=== PATIENT | female | born 1960 | race Two or more races ===

== ENCOUNTER 2019-11-01 21:33 | Inpatient (IN) | payer MEDICARE, OTHER ==
[2019-11-01] MEDS ORDERED: KETOROLAC 30 MG/ML 1 ML VIAL IVP STA (22:34)
[2019-11-01] MEDS ORDERED: ACETAMINOPHEN TAB 500 MG TAB PO STA (22:34)
[2019-11-01] MEDS ORDERED: SODIUM CHLORIDE 0.9% 1,000 ML IV ONE (22:35)
--- NOTE | 2019-11-01 22:44 | XR ---
EXAMINATION TYPE: XR chest 1V portable DATE OF EXAM: 11/01/2019 COMPARISON: NONE HISTORY: Fever and cough TECHNIQUE: FINDINGS: Heart and mediastinum are normal. There is some airspace consolidation in the right upper l obe. There is small area of atelectasis at the right lung base. Left lung is clear. There is no heart failure. There are no hilar masses. IMPRESSION: Right upper lobe consolidation more likely related to bronchopneumonia. Normal heart.
[2019-11-01] MEDS ORDERED: ALBUTEROL HFA INHALER INHALATION ONE (22:45)
[2019-11-01 22:52] LABS: Basophils % (A) 0 %; Eosinophils % (A) 0 %; HCT 37.2 % (34.0-46.0); HGB 12.6 gm/dL (11.4-16.0); Lymphocytes # (A) 1.2 k/uL (1.0-4.8); Lymphocytes % (A) 6 %; MCH 34.1 pg (25.0-35.0); MCHC 33.9 g/dL (31.0-37.0); MCV 100.7 fL (80.0-100.0); Mean Platelet Volume 8.4; Monocytes # (A) 1.3 k/uL (0-1.0); Monocytes % (A) 7 %; Neutrophils # (A) 16.7 k/uL (1.3-7.7); Neutrophils % (A) 85 %; Platelet Count 207 k/uL (150-450); RBC 3.69 m/uL (3.80-5.40); RDW 13.3 % (11.5-15.5); WBC 19.7 k/uL (3.8-10.6)
[2019-11-01 22:53] LABS: ALT 42 U/L (4-34); AST 80 U/L (14-36); African American GFR (CKD) >90 (>60 ml/min/1.73 sqM); Albumin 3.4 g/dL (3.5-5.0); Alkaline Phosphatase 102 U/L (38-126); Anion Gap 11 mmol/L; Blood Urea Nitrogen 13 mg/dL (7-17); Calcium 9.1 mg/dL (8.4-10.2); Carbon Dioxide 26 mmol/L (22-30); Chloride 99 mmol/L (98-107); Glucose 138 mg/dL (74-99); INR 0.9 (<1.2); Non-African American GFR(CKD) >90 (>60 ml/min/1.73 sqM); Partial Thromboplastin Time 26.4 sec (22.0-30.0); Potassium 3.6 mmol/L (3.5-5.1); Prothrombin Time 9.3 sec (9.0-12.0); Sodium 136 mmol/L (137-145); Total Bilirubin 0.6 mg/dL (0.2-1.3); Total Protein 6.2 g/dL (6.3-8.2)
[2019-11-01] MEDS ORDERED: AZITHROMYCIN 500 MG in SODIUM CHLORIDE 0.9% 250 ML IVPB STA (22:59)
--- NOTE | 2019-11-01 23:31 | ED ---
General Adult HPI - General Chief complaint: Fever Stated complaint: poss covid Time Seen by Provider: 11/01/19 22:09 Source: patient, EMS Mode of arrival: EMS Limitations: no limitations - History of Present Illness Initial comments: 59-year-old female patient passed medical history significant for oxygen dependent COPD presents to the emergency department today for evaluation of fever, cough, and shortness of breath. Patient states symptoms have been present for the last 2-3 days. States that she does feel tightness in her chest with this. Denies any sputum production. States that she has been feverish and chilled, temperature is been as high as 102F. She denies any nausea, vomiting, abdominal pain, hematuria, dysuria, urinary frequency, urinary urgency. States she has been having 1 episode of diarrhea daily for the last couple of days. Patient denies any recent rash, numbness, tingling, dizziness, weakness, hematuria, dysuria, urinary urgency, urinary frequency, headache, visual changes, or any other complaints. - Related Data Allergies Allergy/AdvReac Type Severity Reaction Status Date / Time Latex, Natural Rubber Allergy Rash/Hives Verified 11/01/19 22:23 Review of Systems ROS Statement: Those systems with pertinent positive or pertinent negative responses have been documented in the HPI. ROS Other: All systems not noted in ROS Statement are negative. Past Medical History Past Medical History: Hyperlipidemia Additional Past Medical History / Comment(s): back pain History of Any Multi-Drug Resistant Organisms: None Reported Past Surgical History: Tubal Ligation Past Psychological History: No Psychological Hx Reported Smoking Status: Current every day smoker Past Alcohol Use History: Occasional Past Drug Use History: None Reported General Exam Limitations: no limitations General appearance: alert, in no apparent distress ENT exam: Present: normal exam, normal oropharynx, mucous membranes moist Respiratory exam: Present: normal lung sounds bilaterally, wheezes (scattered inspiratory and expiratory wheezes noted. ). Absent: respiratory distress, rales, rhonchi, stridor Cardiovascular Exam: Present: regular rate, normal rhythm, normal heart sounds. Absent: systolic murmur, diastolic murmur, rubs, gallop, clicks GI/Abdominal exam: Present: soft, normal bowel sounds. Absent: distended, tenderness, guarding, rebound, rigid Neurological exam: Present: alert, oriented X3, CN II-XII intact Psychiatric exam: Present: normal affect, normal mood Skin exam: Present: warm, dry, intact, normal color. Absent: rash Course Vital Signs 11/01/19 22:00 Temperature 101.5 F H Pulse Rate 96 Respiratory 24 Rate Blood Pressure 110/71 O2 Sat by Pulse 97 Oximetry Medical Decision Making - Medical Decision Making 59-year-old female patient presented for evaluation of shortness of breath and fever. Physical examination revealed scattered expiratory wheezes in the posterior lung encarnacion. Patient is oxygen dependent, states that she has been using 3 L more often than usual. Labs reviewed and did reveal elevated white blood cell count at 19,000, mild elevation in liver enzymes. Chest x-ray showed right upper lobe pneumonia. We will start azithromycin and Rocephin. She'll be admitted to the hospital for further evaluation and monitoring. Coronavirus testing has been sent. - Lab Data Result diagrams: 11/01/19 22:00 11/01/19 22:00 Lab Results 11/01/19 11/01/19 11/01/19 Range/Units 22:00 22:00 22:00 WBC 19.7 H (3.8-10.6) k/uL RBC 3.69 L (3.80-5.40) m/uL Hgb 12.6 (11.4-16.0) gm/dL Hct 37.2 (34.0-46.0) % MCV 100.7 H (80.0-100.0) fL MCH 34.1 (25.0-35.0) pg MCHC 33.9 (31.0-37.0) g/dL RDW 13.3 (11.5-15.5) % Plt Count 207 (150-450) k/uL Neutrophils % 85 % Lymphocytes % 6 % Monocytes % 7 % Eosinophils % 0 % Basophils % 0 % Neutrophils # 16.7 H (1.3-7.7) k/uL Lymphocytes # 1.2 (1.0-4.8) k/uL Monocytes # 1.3 H (0-1.0) k/uL Eosinophils # 0.0 (0-0.7) k/uL Basophils # 0.0 (0-0.2) k/uL PT 9.3 (9.0-12.0) sec INR 0.9 (<1.2) APTT 26.4 (22.0-30.0) sec Sodium (137-145) mmol/L Potassium (3.5-5.1) mmol/L Chloride (98-107) mmol/L Carbon Dioxide (22-30) mmol/L Anion Gap mmol/L BUN (7-17) mg/dL Creatinine (0.52-1.04) mg/dL Est GFR (CKD-EPI)AfAm (>60 ml/min/1.73 sqM) Est GFR (CKD-EPI)NonAf (>60 ml/min/1.73 sqM) Glucose (74-99) mg/dL Plasma Lactic Acid Braulio (0.7-2.0) mmol/L Calcium (8.4-10.2) mg/dL Total Bilirubin (0.2-1.3) mg/dL AST (14-36) U/L ALT (4-34) U/L Alkaline Phosphatase (38-126) U/L Troponin I <0.012 (0.000-0.034) ng/mL Total Protein (6.3-8.2) g/dL Albumin (3.5-5.0) g/dL 11/01/19 11/01/19 Range/Units 22:00 22:00 WBC (3.8-10.6) k/uL RBC (3.80-5.40) m/uL Hgb (11.4-16.0) gm/dL Hct (34.0-46.0) % MCV (80.0-100.0) fL MCH (25.0-35.0) pg MCHC (31.0-37.0) g/dL RDW (11.5-15.5) % Plt Count (150-450) k/uL Neutrophils % % Lymphocytes % % Monocytes % % Eosinophils % % Basophils % % Neutrophils # (1.3-7.7) k/uL Lymphocytes # (1.0-4.8) k/uL Monocytes # (0-1.0) k/uL Eosinophils # (0-0.7) k/uL Basophils # (0-0.2) k/uL PT (9.0-12.0) sec INR (<1.2) APTT (22.0-30.0) sec Sodium 136 L (137-145) mmol/L Potassium 3.6 (3.5-5.1) mmol/L Chloride 99 (98-107) mmol/L Carbon Dioxide 26 (22-30) mmol/L Anion Gap 11 mmol/L BUN 13 (7-17) mg/dL Creatinine 0.59 (0.52-1.04) mg/dL Est GFR (CKD-EPI)AfAm >90 (>60 ml/min/1.73 sqM) Est GFR (CKD-EPI)NonAf >90 (>60 ml/min/1.73 sqM) Glucose 138 H (74-99) mg/dL Plasma Lactic Acid Braulio 1.2 (0.7-2.0) mmol/L Calcium 9.1 (8.4-10.2) mg/dL Total Bilirubin 0.6 (0.2-1.3) mg/dL AST 80 H (14-36) U/L ALT 42 H (4-34) U/L Alkaline Phosphatase 102 (38-126) U/L Troponin I (0.000-0.034) ng/mL Total Protein 6.2 L (6.3-8.2) g/dL Albumin 3.4 L (3.5-5.0) g/dL - Radiology Data Radiology results: report reviewed, image reviewed One view x-ray of the chest is obtained. Report was reviewed in its entirety. Impression by Dr. Prado shows right upper lobe consolidation more likely related to bronchopneumonia. Normal heart. Disposition Clinical Impression: Right upper lobe pneumonia Disposition: ADMITTED IP TO THIS [facility] Condition: Serious Referrals: Diego Saini MD [Primary Care Provider] - 1-2 days Decision to Admit Reason: Admit from EC Decision Date: 11/01/19 Decision Time: 23:34
[2019-11-01] MEDS ORDERED: PNEUMONIA PROTOCOL UTILIZED 1 EACH MISC PO PRN (23:36)
[2019-11-01] MEDS ORDERED: ALBUTEROL HFA INHALER INHALATION PRN (23:39)
[2019-11-02] MEDS: SODIUM CHLORIDE 0.9% 1,000 ML IV SCH ×3 (00:05→21:34)
[2019-11-02 06:01] LABS: Appearance,Urine Clear (Clear); Bacteria,Urine Rare /hpf; Bilirubin,Urine Negative (Negative); Blood,Urine Small (Negative); Color,Urine Yellow; Glucose,Urine (UA) Negative (Negative); Ketones,Urine Negative (Negative); Leukocyte Esterase,Urine Negative (Negative); Mucus,Urine Occasional /hpf; Nitrite,Urine Negative (Negative); Protein,Urine 1+ (Negative); RBC,Urine 3 /hpf (0-5); Specific Gravity,Urine 1.012 (1.001-1.035); Squamous Epithelial Cell,Urine 1 /hpf (0-4); WBC,Urine 2 /hpf (0-5)
[2019-11-02] MEDS: MORPHINE SULFATE 4 MG/ML SYRINGE IVP PRN ×3 (06:20→15:20)
--- NOTE | 2019-11-02 07:27 | XR ---
EXAMINATION TYPE: XR chest 1V portable DATE OF EXAM: 11/02/2019 HISTORY: pneumonia. REFERENCE: Previous study dated 11/01/2019. FINDINGS: There is worsening right upper lobe infiltrate. Lung volumes are prominent. Heart size uppe r limits of normal. Pleural spaces are clear. IMPRESSION: WORSENING RIGHT UPPER LOBE PNEUMONIA.
[2019-11-02] MEDS: ALBUTEROL HFA INHALER INHALATION SCH ×4 (08:26→20:25)
[2019-11-02] MEDS ORDERED: IPRATROPIUM-ALBUTEROL 3 ML NEB INHALATION PRN (08:39)
[2019-11-02] MEDS ORDERED: SUMAtriptan SUCCINATE 50 MG TAB PO PRN (08:39)
[2019-11-02] MEDS: buPROPion XL 300 MG TAB.ER.24H PO SCH (08:50)
[2019-11-02] MEDS: BACLOFEN 10 MG TAB PO SCH ×2 (08:50→20:14)
[2019-11-02] MEDS: ATORVASTATIN 20 MG TAB PO SCH (08:50)
[2019-11-02] MEDS: GABAPENTIN 300 MG CAP PO SCH ×3 (08:50→21:34)
[2019-11-02] MEDS: ACETAMINOPHEN TAB 325 MG TAB PO PRN ×2 (08:53→20:14)
[2019-11-02 10:32] VITALS: BMI 22.1
--- NOTE | 2019-11-02 19:05 | P.HPIM ---
History of Present Illness H&P Date: 11/02/19 Chief Complaint: Fever 59-year-old female patient passed medical history significant for oxygen dependent COPD presents to the emergency department today for evaluation of feve r, cough, and shortness of breath. Patient states symptoms have been present for the last 2-3 days. States that she does feel tightness in her chest with this. Denies any sputum production. States that she has been feverish and chilled, temperature is been as high as 102F. She denies any nausea, vomiting, abdominal pain, hematuria, dysuria, urinary frequency, urinary urgency. States she has been having 1 episode of diarrhea daily for the last couple of days. Patient denies any recent rash, numbness, tingling, dizziness, weakness, hematuria, dysuria, urinary urgency, urinary frequency, headache, visual changes, or any other complaints. Evaluation in ED revealed patient temperature to be at 101.5; elevated white blood count of 19,000 with mild elevation in liver enzymes; chest x-ray showed right upper lobe pneumonia; patient is started on IV Rocephin and azithromycin and is admitted to the hospital for further evaluation; patient is suspicious of covert 19 infection; testing is done and pending Review of Systems REVIEW OF SYSTEMS: CONSTITUTIONAL: Positive for fever, no malaise, no fatigue. HEENT: No recent visual problems or hearing problems. Denied any sore throat. CARDIOVASCULAR: No chest pain, orthopnea, PND, no palpitations, no syncope. PULMONARY: Complains of shortness of breath, no cough, no hemoptysis. GASTROINTESTINAL: No diarrhea, no nausea, no vomiting, no abdominal pain. NEUROLOGICAL: No headaches, no weakness, no numbness. HEMATOLOGICAL: Denies any bleeding or petechiae. GENITOURINARY: Denies any burning micturition, frequency, or urgency. MUSCULOSKELETAL/RHEUMATOLOGICAL: Denies any joint pain, swelling, or any muscle pain. ENDOCRINE: Denies any polyuria or polydipsia. The rest of the 14-point review of systems is negative. Past Medical History Past Medical History: Hyperlipidemia Additional Past Medical History / Comment(s): back pain History of Any Multi-Drug Resistant Organisms: None Reported Past Surgical History: Tubal Ligation Past Psychological History: No Psychological Hx Reported Smoking Status: Former smoker Past Alcohol Use History: Occasional Past Drug Use History: None Reported Medications and Allergies Home Medications Medication Instructions Recorded Confirmed Type Albuterol Inhaler [Ventolin Hfa 2 puff INHALATION RT-TID 11/02/19 11/02/19 History Inhaler] Atorvastatin [Lipitor] 20 mg PO DAILY 11/02/19 11/02/19 History Baclofen 10 mg PO BID 11/02/19 11/02/19 History Fluticasone/Umeclidin/Vilanter 1 puff INHALATION RT-DAILY 11/02/19 11/02/19 History [Trelegy Ellipta 100-62.5-25] Gabapentin 600 mg PO TID 11/02/19 11/02/19 History Hydrocortisone Cream 1 applic TOPICAL DAILY 11/02/19 11/02/19 History [Hydrocortisone 2.5% Cream] Ipratropium-Albuterol Nebulize 3 ml INHALATION TID PRN 11/02/19 11/02/19 History [Duoneb 0.5 mg-3 mg/3 ml Soln] Levothyroxine Sodium [Synthroid] 50 mcg PO DAILY 11/02/19 11/02/19 History Meloxicam 7.5 mg PO DAILY 11/02/19 11/02/19 History SUMAtriptan SUCCINATE [Sumatriptan 50 mg PO DAILY PRN 11/02/19 11/02/19 History Succinate] Sertraline [Zoloft] 100 mg PO HS 11/02/19 11/02/19 History Triamcinolone 0.025% Cream 1 applic TOPICAL DAILY 11/02/19 11/02/19 History [Kenalog 0.025% Cream] buPROPion HCL [Wellbutrin XL] 300 mg PO DAILY 11/02/19 11/02/19 History traZODone HCL 100 mg PO HS 11/02/19 11/02/19 History Allergies Allergy/AdvReac Type Severity Reaction Status Date / Time Latex, Natural Rubber Allergy Rash/Hives Verified 11/02/19 12:15 Physical Exam Vitals: Vital Signs Temp Pulse Pulse Resp BP BP Pulse Ox 11/02/19 07:00 100.1 F H 92 18 106/65 93 L 11/02/19 02:55 97.6 F 67 100/60 95 11/02/19 01:07 97.8 F 69 16 95/59 97 11/01/19 23:22 99.9 F H 92 18 103/62 98 11/01/19 22:00 101.5 F H 96 24 110/71 97 Intake and Output 11/02/19 11/02/19 11/02/19 06:59 14:59 22:59 Intake Total 120 Output Total 450 Balance -330 Intake: Oral 120 Output: Urine 450 Other: Voiding Method Toilet # Voids 2 Weight 56.699 kg 56.699 kg General appearance: alert, in no apparent distress ENT exam: Present: normal exam, normal oropharynx, mucous membranes moist Respiratory exam: Present: normal lung sounds bilaterally, wheezes (scattered inspiratory and expiratory wheezes noted. ). Absent: respiratory distress, rales, rhonchi, stridor Cardiovascular Exam: Present: regular rate, normal rhythm, normal heart sounds. Absent: systolic murmur, diastolic murmur, rubs, gallop, clicks GI/Abdominal exam: Present: soft, normal bowel sounds. Absent: distended, tenderness, guarding, rebound, rigid Neurological exam: Present: alert, oriented X3, CN II-XII intact Psychiatric exam: Present: normal affect, normal mood Skin exam: Present: warm, dry, intact, normal color. Absent: rash Results CBC & Chem 7: 11/01/19 22:00 11/01/19 22:00 Labs: Abnormal Lab Results - Last 24 Hours (Table) 11/01/19 11/01/19 11/02/19 Range/Units 22:00 22:00 05:05 WBC 19.7 H (3.8-10.6) k/uL RBC 3.69 L (3.80-5.40) m/uL MCV 100.7 H (80.0-100.0) fL Neutrophils # 16.7 H (1.3-7.7) k/uL Monocytes # 1.3 H (0-1.0) k/uL Sodium 136 L (137-145) mmol/L Glucose 138 H (74-99) mg/dL AST 80 H (14-36) U/L ALT 42 H (4-34) U/L Total Protein 6.2 L (6.3-8.2) g/dL Albumin 3.4 L (3.5-5.0) g/dL Urine Protein 1+ H (Negative) Urine Blood Small H (Negative) Urine Bacteria Rare H (None) /hpf Urine Mucus Occasional H (None) /hpf Thrombosis Risk Factor Assmnt - Choose All That Apply Any of the Below Risk Factors Present?: Yes Each Factor Represents 1 point: Abnormal pulmonary function (COPD), Age 41-60 years Other Risk Factors: No Other congenital or acquired thrombophilia - If yes, enter type in comment: No Thrombosis Risk Factor Assessment Total Risk Factor Score: 2 Thrombosis Risk Factor Assessment Level: Low Risk Assessment and Plan Assessment: 1. Right upper lobe pneumonia - We will continue patient on IV Rocephin and azithromycin; continue with O2 per nasal cannula keeping SpO2 greater than 92% - We will consult pulmonary service for further recommendations 2. Suspected COVID 19 infection; testing is sent and pending; we will treat symptomatically and keep patient in droplet and contact isolation 3. Mild transaminitis; possibly related to 1 and 2 - We will continue to monitor liver enzymes with possible abdominal ultrasound if liver enzymes continue to trend up 4. Hypothyroidism; levothyroxine 50 MCG daily 5. Hyperlipidemia; continue with home dose of Lipitor 20 mg by mouth daily at bedtime 6. Depression/sleep disorder; Zoloft 100 mg daily along with trazodone 100 mg daily at bedtime DVT prophylaxis; SCDs/subcu heparin CODE STATUS; full code
[2019-11-02] MEDS: traZODone HCL 100 MG TAB PO SCH (20:14)
[2019-11-02] MEDS: AZITHROMYCIN 500 MG TAB PO SCH (20:14)
[2019-11-02] MEDS: HEPARIN SODIUM,PORCINE 5,000 UNIT/ML 1 ML VIAL SQ SCH (20:14)
[2019-11-02] MEDS: SERTRALINE 100 MG TAB PO SCH (20:14)
[2019-11-03] MEDS: MORPHINE SULFATE 4 MG/ML SYRINGE IVP PRN ×4 (03:14→22:26)
[2019-11-03] MEDS: SODIUM CHLORIDE 0.9% 1,000 ML IV SCH ×6 (03:40→23:22)
[2019-11-03] MEDS: LEVOTHYROXINE 50 MCG TAB PO SCH (05:48)
[2019-11-03] MEDS: GABAPENTIN 300 MG CAP PO SCH ×3 (07:43→20:59)
[2019-11-03] MEDS: HEPARIN SODIUM,PORCINE 5,000 UNIT/ML 1 ML VIAL SQ SCH ×2 (07:43→20:59)
[2019-11-03] MEDS: ATORVASTATIN 20 MG TAB PO SCH (07:43)
[2019-11-03] MEDS: buPROPion XL 300 MG TAB.ER.24H PO SCH (07:43)
[2019-11-03] MEDS: BACLOFEN 10 MG TAB PO SCH ×2 (07:43→20:59)
[2019-11-03] MEDS: ALBUTEROL HFA INHALER INHALATION SCH ×4 (07:57→19:38)
[2019-11-03 08:21] LABS: Basophils % (A) 0 %; Eosinophils % (A) 0 %; HGB 10.6 gm/dL (11.4-16.0); Lymphocytes # (A) 1.1 k/uL (1.0-4.8); Lymphocytes % (A) 6 %; MCH 34.1 pg (25.0-35.0); MCHC 33.1 g/dL (31.0-37.0); MCV 103.2 fL (80.0-100.0); Macrocytosis Slight; Mean Platelet Volume 8.5; Monocytes % (A) 6 %; Neutrophils # (A) 15.2 k/uL (1.3-7.7); Neutrophils % (A) 86 %; Platelet Count 231 k/uL (150-450); RDW 13.8 % (11.5-15.5); WBC 17.7 k/uL (3.8-10.6)
[2019-11-03 08:25] LABS: African American GFR (CKD) >90 (>60 ml/min/1.73 sqM); Anion Gap 6 mmol/L; Blood Urea Nitrogen 8 mg/dL (7-17); Calcium 8.4 mg/dL (8.4-10.2); Carbon Dioxide 26 mmol/L (22-30); Chloride 104 mmol/L (98-107); Glucose 103 mg/dL (74-99); Non-African American GFR(CKD) >90 (>60 ml/min/1.73 sqM); Potassium 3.6 mmol/L (3.5-5.1); Sodium 136 mmol/L (137-145)
[2019-11-03 09:30] LABS: C Reactive Protein 378.7 mg/L (<10.0)
[2019-11-03] MEDS: methylPREDNISolone SOD SUCCI 125 MG/2 ML VIAL IV SCH ×3 (11:06→23:59)
[2019-11-03] MEDS: POLYETHYLENE GLYCOL 3350 17 GM POWD.PACK PO SCH (12:50)
--- NOTE | 2019-11-03 14:12 | P.CNPUL ---
History of Present Illness Consult date: 11/03/19 Requesting physician: Marlys Camargo Reason for consult: dyspnea, COPD Chief complaint: Shortness of breath, cough, congestion, fever History of present illness: This is a pleasant 59-year-old female patient who has a history of oxygen dependent chronic obstructive pulmonary disease, chronic tobacco dependence, hyperlipidemia. She presented here to the emergency room on 11/01/2019 with complaints of increasing shortness of breath cough, congestion and fever for 2-3 days prior to her arrival. Her temperature was as high as 102. She also had an episode of diarrhea. Chest x-ray shows significant right upper lobe pneumonia. She is seen today in consultation on the regular medical floor. She is currently awake and alert in no acute distress. She is maintaining O2 saturations in the low 90s on 4 L/m per nasal cannula. Afebrile this morning. She's had a T-max of 101.5 here. Blood and sputum cultures are pending. White count 17.7. Hemoglobin 10.6. Sodium 136. Potassium 3.6. Creatinine 0.49. Penaloza virus not detected. She's been initiated on azithromycin and ceftriaxone. She is on bronchodilators and IV Solu-Medrol. 0.9#875 ML's per hour. Heparin for DVT prophylaxis. Review of Systems REVIEW OF SYSTEMS: CONSTITUTIONAL: Denies any recent significant weight loss or weight gain. EYES: Denies change in vision. EARS, NOSE, MOUTH, THROAT: Denies headaches, denies sore throat. CARDIOVASCULAR: Denies chest pain, palpitations or syncopal episodes. RESPIRATORY: Positive for shortness of breath, cough, congestion no hemoptysis. GASTROINTESTINAL: Denies change in appetite, denies abdominal pain GENITOURINARY: Denies hematuria, denies infections. MUSKULOSKELETAL: Denies pain, denies swelling. INTEGUMENTARY: Denies rash, denies eczema. NEUROLOGICAL: Denies recent memory loss, no recent seizure activity. PSYCHIATRIC: Denies anxiety, denies depression. HEMATOLOGIC/LYMPHATIC: Denies anemia, denies enlarged lymph nodes. Past Medical History Past Medical History: COPD, Hyperlipidemia Additional Past Medical History / Comment(s): back pain History of Any Multi-Drug Resistant Organisms: None Reported Past Surgical History: Tubal Ligation Past Psychological History: No Psychological Hx Reported Smoking Status: Former smoker Past Alcohol Use History: Occasional Past Drug Use History: None Reported Medications and Allergies Home Medications Medication Instructions Recorded Confirmed Type Albuterol Inhaler [Ventolin Hfa 2 puff INHALATION RT-TID 11/02/19 11/02/19 History Inhaler] Atorvastatin [Lipitor] 20 mg PO DAILY 11/02/19 11/02/19 History Baclofen 10 mg PO BID 11/02/19 11/02/19 History Fluticasone/Umeclidin/Vilanter 1 puff INHALATION RT-DAILY 11/02/19 11/02/19 History [Trelegy Ellipta 100-62.5-25] Gabapentin 600 mg PO TID 11/02/19 11/02/19 History Hydrocortisone Cream 1 applic TOPICAL DAILY 11/02/19 11/02/19 History [Hydrocortisone 2.5% Cream] Ipratropium-Albuterol Nebulize 3 ml INHALATION TID PRN 11/02/19 11/02/19 History [Duoneb 0.5 mg-3 mg/3 ml Soln] Levothyroxine Sodium [Synthroid] 50 mcg PO DAILY 11/02/19 11/02/19 History Meloxicam 7.5 mg PO DAILY 11/02/19 11/02/19 History SUMAtriptan SUCCINATE [Sumatriptan 50 mg PO DAILY PRN 11/02/19 11/02/19 History Succinate] Sertraline [Zoloft] 100 mg PO HS 11/02/19 11/02/19 History Triamcinolone 0.025% Cream 1 applic TOPICAL DAILY 11/02/19 11/02/19 History [Kenalog 0.025% Cream] buPROPion HCL [Wellbutrin XL] 300 mg PO DAILY 11/02/19 11/02/19 History traZODone HCL 100 mg PO HS 11/02/19 11/02/19 History Allergies Allergy/AdvReac Type Severity Reaction Status Date / Time Latex, Natural Rubber Allergy Rash/Hives Verified 11/02/19 12:15 Physical Exam Vitals: Vital Signs Temp Pulse Resp BP Pulse Ox 11/03/19 07:00 98.9 F 93 18 98/63 92 L 11/03/19 01:55 98.8 F 114 H 144/68 93 L 11/02/19 19:12 100 F H 105 H 16 100/55 91 L 11/02/19 15:00 99.6 F 100 17 100/66 96 Intake and Output 11/02/19 11/03/19 11/03/19 22:59 06:59 14:59 Intake Total 750 Balance 750 Intake: Intake, IV Titration 750 Amount Sodium Chloride 0.9% 1, 750 000 ml @ 75 mls/hr IV . [id number] PORSHA Rx#:[id number] Other: Voiding Method Toilet Toilet # Voids 1 3 2 GENERAL EXAM: Alert, pleasant 59-year-old female patient, on 4 L nasal cannula, comfortable in no apparent distress. HEAD: Normocephalic. EYES: Normal reaction of pupils, equal size. NOSE: Clear with pink turbinates. THROAT: No erythema or exudates. NECK: No masses, no JVD. CHEST: No chest wall deformity. LUNGS: Equal air entry with few scattered rhonchi more so on the right lung, end expiratory wheeze, diminished. CVS: S1 and S2 normal with no audible murmur, regular rhythm. ABDOMEN: No hepatosplenomegaly, normal bowel sounds, no guarding or rigidity. SPINE: No scoliosis or deformity SKIN: No rashes CENTRAL NERVOUS SYSTEM: No focal deficits, tone is normal in all 4 extremities. EXTREMITIES: There is no peripheral edema. No clubbing, no cyanosis. Peripheral pulses are intact. Results - Laboratory Findings CBC and BMP: 11/03/19 07:30 11/03/19 07:30 PT/INR, D-dimer PT 9.3 sec (9.0-12.0) 11/01/19 22:00 INR 0.9 (<1.2) 11/01/19 22:00 Abnormal lab findings: Abnormal Labs 11/01/19 11/01/19 11/02/19 22:00 22:00 05:05 WBC 19.7 H RBC 3.69 L Hgb Hct MCV 100.7 H Neutrophils # 16.7 H Monocytes # 1.3 H Sodium 136 L Creatinine Glucose 138 H AST 80 H ALT 42 H C-Reactive Protein Total Protein 6.2 L Albumin 3.4 L Urine Protein 1+ H Urine Blood Small H Urine Bacteria Rare H Urine Mucus Occasional H 11/03/19 11/03/19 07:30 07:30 WBC 17.7 H RBC 3.10 L Hgb 10.6 L Hct 32.0 L MCV 103.2 H Neutrophils # 15.2 H Monocytes # Sodium 136 L Creatinine 0.49 L Glucose 103 H AST ALT C-Reactive Protein 378.7 H Total Protein Albumin Urine Protein Urine Blood Urine Bacteria Urine Mucus - Diagnostic Findings Chest x-ray: image reviewed (Right upper lobe consolidation) Assessment and Plan Assessment: 1 Acute hypoxic respiratory failure secondary to right upper lobe consolidation most likely community-acquired bronchopneumonia, Covid 19 screen negative 2 Leukocytosis secondary to above 3 Acute exacerbation of chronic obstructive pulmonary disease secondary to above 4 Chronic tobacco dependence 5 Hyperlipidemia 6 Hypothyroidism Plan The patient was seen and evaluated by Dr. Love Chest x-ray and labs review Continue ceftriaxone and azithromycin Add Symbicort continue DuoNeb's Continue IV Solu-Medrol Encouraged regarding the importance of complete smoking cessation Add NicoDerm patch Repeat chest x-ray in a.m. We will continue to follow make further recommendations based on her clinical status I, the cosigning physician, performed a history & physical examination of the patient. Lungs sounds few scattered rhonchi more so on the right, and expiratory wheeze, diminished Maintaining good O2 saturations in the 90s on 4 L/m per nasal cannula. I discussed the assessment and plan of care with my nurse practitioner, Carley Andrade. I attest to the above consultation as dictated by her. Time with Patient: Greater than 30
[2019-11-03] MEDS: ACETAMINOPHEN TAB 325 MG TAB PO PRN (15:40)
[2019-11-03] MEDS: SYMBICORT 160-4.5 MCG INHALER INHALATION SCH (19:38)
[2019-11-03] MEDS: traZODone HCL 100 MG TAB PO SCH (20:59)
[2019-11-03] MEDS: SERTRALINE 100 MG TAB PO SCH (20:59)
[2019-11-03] MEDS: AZITHROMYCIN 500 MG TAB PO SCH (20:59)
--- NOTE | 2019-11-04 00:06 | P.PN ---
Subjective Progress Note Date: 11/03/19 Principal diagnosis: RUL Pneumonia COPD exacerbation 59-year-old female patient passed medical history significant for oxygen dependent COPD presents to the emergency department today for evaluation of fever, cough, and shortness of breath. Patient states symptoms have been pre sent for the last 2-3 days. States that she does feel tightness in her chest with this. Denies any sputum production. States that she has been feverish and chilled, temperature is been as high as 102F. She denies any nausea, vomiting, abdominal pain, hematuria, dysuria, urinary frequency, urinary urgency. States she has been having 1 episode of diarrhea daily for the last couple of days. P atient denies any recent rash, numbness, tingling, dizziness, weakness, hematuria, dysuria, urinary urgency, urinary frequency, headache, visual changes, or any other complaints. Evaluation in ED revealed patient temperature to be at 101.5; elevated white blood count of 19,000 with mild elevation in liver enzymes; chest x-ray showed right upper lobe pneumonia; patient is started on IV Rocephin and azithromycin and is admitted to the hospital for further evaluation; patient is suspicious of covert 19 infection; testing is negatie. 11/03/2019 Patient currently denied any complaints of chest pain. Shortness of breath is about the same. Patient does have bilateral diffuse wheezing on exam. WBC is improving to 17.0 today. Currently being continued on antibiotics ceftriaxone and azithromycin. Pulmonary is following. Continue with oxygen therapy. No nausea vomiting or abdominal pain or diarrhea. Laboratory data showed WBC 17.7, hemoglobin 10.6, sodium 136, creatinine 0.49 CRP 378 and pro calcitonin 1.26. Both elevated. Current medications reviewed. Active Medications Acetaminophen (Tylenol Tab) 325 mg PO Q6HR PRN PRN Reason: Fever and/ or Pain Last Admin: 11/03/19 15:40 Dose: 325 mg Documented by: Albuterol Sulfate (Ventolin Hfa Inhaler) 2 puff INHALATION RT-QID PRN PRN Reason: Shortness Of Breath Or Wheezing Albuterol Sulfate (Ventolin Hfa Inhaler) 2 puff INHALATION RT-QID PORSHA Last Admin: 11/03/19 19:38 Dose: 2 puff Documented by: Atorvastatin Calcium (Lipitor) 20 mg PO DAILY [facility] Last Admin: 11/03/19 07:43 Dose: 20 mg Documented by: Azithromycin (Zithromax) 500 mg PO DAILY@2100 [facility] Last Admin: 11/03/19 20:59 Dose: 500 mg Documented by: Baclofen (Lioresal) 10 mg PO BID [facility] Last Admin: 11/03/19 20:59 Dose: 10 mg Documented by: Budesonide/Formoterol Fumarate (Symbicort 160-4.5 Mcg Inhaler) 2 puff INHALAT ION RT-BID [facility] Last Admin: 11/03/19 19:38 Dose: 2 puff Documented by: Bupropion HCl (Wellbutrin Xl) 300 mg PO DAILY [facility] Last Admin: 11/03/19 07:43 Dose: 300 mg Documented by: Gabapentin (Neurontin) 600 mg PO TID [facility] Last Admin: 11/03/19 20:59 Dose: 600 mg Documented by: Heparin Sodium (Porcine) (Heparin) 5,000 unit SQ Q12HR [facility] Last Admin: 11/03/19 20:59 Dose: 5,000 unit Documented by: Sodium Chloride (Saline 0.9%) 1,000 mls @ 75 mls/hr IV .[id number] [facility] Last Admin: 11/03/19 20:58 Dose: 75 mls/hr Documented by: Ceftriaxone Sodium 1 gm/ (Sodium Chloride) 50 mls @ 100 mls/hr IVPB Q24H [facility] Last Admin: 11/03/19 20:59 Dose: 100 mls/hr Documented by: Sodium Chloride (Saline 0.9%) 1,000 mls @ 75 mls/hr IV .[id number] [facility] Last Admin: 11/03/19 23:22 Dose: Not Given Documented by: Levothyroxine Sodium (Synthroid) 50 mcg PO 0630 [facility] Last Admin: 11/03/19 05:48 Dose: 50 mcg Documented by: Methylprednisolone Sodium Succinate (Solu-Medrol) 60 mg IV Q6HR [facility] Last Admin: 11/03/19 23:59 Dose: 60 mg Documented by: Miscellaneous Information (Pneumonia Protocol Utilized) 1 each PO ONCE PRN PRN Reason: Per Protocol Morphine Sulfate (Morphine Sulfate (Inj)) 4 mg IVP Q4HR PRN PRN Reason: Pain Last Admin: 11/03/19 22:26 Dose: 4 mg Documented by: Polyethylene Glycol (Miralax) 17 gm PO DAILY [facility] Last Admin: 11/03/19 12:50 Dose: 17 gm Documented by: Sertraline HCl (Zoloft) 100 mg PO [facility] Last Admin: 11/03/19 20:59 Dose: 100 mg Documented by: Sumatriptan Succinate (Imitrex) 50 mg PO WEEKLY PRN PRN Reason: MIGRAINES Trazodone HCl (Desyrel) 100 mg PO [facility] Last Admin: 11/03/19 20:59 Dose: 100 mg Documented by: Objective - Vital Signs Vital signs: Vital Signs Temp 100.2 F H 11/03/19 15:00 Pulse 105 H 11/03/19 15:00 Resp 17 11/03/19 15:00 BP 113/72 11/03/19 15:00 Pulse Ox 90 L 11/03/19 15:00 Intake & Output 11/03/19 11/03/19 11/04/19 06:59 18:59 06:59 Intake Total 750 Balance 750 Intake: Intake, IV Titration 750 Amount Sodium Chloride 0.9% 1, 750 000 ml @ 75 mls/hr IV . [id number] [facility] Rx#:[id number] Other: Voiding Method Toilet # Voids 3 2 - Exam General appearance: alert, in no apparent distress ENT exam: Present: normal exam, normal oropharynx, mucous membranes moist Respiratory exam: Present: normal lung sounds bilaterally, wheezes (scattered inspiratory and expiratory wheezes noted. ). Absent: respiratory distress, rales, rhonchi, stridor Cardiovascular Exam: Present: regular rate, normal rhythm, normal heart sounds. Absent: systolic murmur, diastolic murmur, rubs, gallop, clicks GI/Abdominal exam: Present: soft, normal bowel sounds. Absent: distended, tenderness, guarding, rebound, rigid Neurological exam: Present: alert, oriented X3, CN II-XII intact Psychiatric exam: Present: normal affect, normal mood Skin exam: Present: warm, dry, intact, normal color. Absent: rash - Labs CBC & Chem 7: 11/03/19 07:30 11/03/19 07:30 Labs: Abnormal Lab Results - Last 24 Hours (Table) 11/03/19 11/03/19 11/03/19 Range/Units 07:30 07:30 07:30 WBC 17.7 H (3.8-10.6) k/uL RBC 3.10 L (3.80-5.40) m/uL Hgb 10.6 L (11.4-16.0) gm/dL Hct 32.0 L (34.0-46.0) % MCV 103.2 H (80.0-100.0) fL Neutrophils # 15.2 H (1.3-7.7) k/uL Sodium 136 L (137-145) mmol/L Creatinine 0.49 L (0.52-1.04) mg/dL Glucose 103 H (74-99) mg/dL C-Reactive Protein 378.7 H (<10.0) mg/L Procalcitonin 1.26 H (0.02-0.09) ng/mL Microbiology - Last 24 Hours (Table) 11/02/19 20:30 Gram Stain - Preliminary Sputum Sputum Culture - Preliminary 11/01/19 22:00 Blood Culture - Preliminary Blood No Growth after 24 hours Assessment and Plan Assessment: 1. Right upper lobe pneumonia. Likely community-acquired pneumonia 2. Acute COPD exacerbation 3. Acute hypoxic respiratory failure secondary to above - continue patient on IV Rocephin and azithromycin; continue with O2 per nasal cannula keeping SpO2 greater than 92% - Pulmonary is following. 2. Suspected COVID 19 infection; test Negative 3. Mild transaminitis; possibly related to 1 and 2 - We will continue to monitor liver enzymes with possible abdominal ultrasound if liver enzymes continue to trend up 4. Hypothyroidism; levothyroxine 50 MCG daily 5. Hyperlipidemia; continue with home dose of Lipitor 20 mg by mouth daily at bedtime 6. Depression/sleep disorder; Zoloft 100 mg daily along with trazodone 100 mg daily at bedtime DVT prophylaxis; SCDs/subcu heparin CODE STATUS; full code Time with Patient: Greater than 30
[2019-11-04] MEDS: methylPREDNISolone SOD SUCCI 125 MG/2 ML VIAL IV SCH ×4 (05:58→23:19)
[2019-11-04] MEDS: LEVOTHYROXINE 50 MCG TAB PO SCH (05:59)
--- NOTE | 2019-11-04 07:20 | XR ---
EXAMINATION TYPE: XR chest 1V portable DATE OF EXAM: 11/04/2019 CLINICAL HISTORY: Right upper lobe pneumonia progress study. TECHNIQUE: Single AP portable upright view of the chest is obtained. COMPARISON: Chest x-ray from 2 and 3 days earlier. FINDINGS: Background chronic emphysematous change with persistent right upper lung opacity having mo re dense tiny low shaped consolidation along the upper aspect with surrounding opacity that has air b ronchograms. New small to tiny bilateral pleural effusions. Cardiac silhouette size upper limits of n ormal with atherosclerotic aorta. Osseous structures are intact. IMPRESSION: Persistent right upper lung acute infiltrate on background chronic emphysematous change. No significant change from most recent x-ray. There are new small to tiny bilateral pleural effusions noted.
[2019-11-04 07:28] LABS: Basophils % (A) 0 %; Eosinophils % (A) 0 %; HCT 34.4 % (34.0-46.0); HGB 10.9 gm/dL (11.4-16.0); Lymphocytes # (A) 0.7 k/uL (1.0-4.8); Lymphocytes % (A) 5 %; MCH 32.7 pg (25.0-35.0); MCHC 31.7 g/dL (31.0-37.0); MCV 103.1 fL (80.0-100.0); Macrocytosis Slight; Mean Platelet Volume 8.3; Monocytes # (A) 0.5 k/uL (0-1.0); Monocytes % (A) 3 %; Neutrophils # (A) 14.4 k/uL (1.3-7.7); Neutrophils % (A) 91 %; Platelet Count 295 k/uL (150-450); RBC 3.34 m/uL (3.80-5.40); RDW 13.6 % (11.5-15.5); WBC 15.7 k/uL (3.8-10.6)
[2019-11-04] MEDS: POLYETHYLENE GLYCOL 3350 17 GM POWD.PACK PO SCH (07:32)
[2019-11-04] MEDS: GABAPENTIN 300 MG CAP PO SCH ×3 (07:32→20:48)
[2019-11-04] MEDS: HEPARIN SODIUM,PORCINE 5,000 UNIT/ML 1 ML VIAL SQ SCH ×2 (07:32→20:46)
[2019-11-04] MEDS: BACLOFEN 10 MG TAB PO SCH ×2 (07:32→20:47)
[2019-11-04] MEDS: ATORVASTATIN 20 MG TAB PO SCH (07:32)
[2019-11-04] MEDS: buPROPion XL 300 MG TAB.ER.24H PO SCH (07:32)
[2019-11-04 07:58] LABS: African American GFR (CKD) >90 (>60 ml/min/1.73 sqM); Anion Gap 9 mmol/L; Blood Urea Nitrogen 13 mg/dL (7-17); Calcium 9.4 mg/dL (8.4-10.2); Carbon Dioxide 28 mmol/L (22-30); Chloride 108 mmol/L (98-107); Glucose 138 mg/dL (74-99); Non-African American GFR(CKD) >90 (>60 ml/min/1.73 sqM); Potassium 3.9 mmol/L (3.5-5.1); Sodium 145 mmol/L (137-145)
[2019-11-04] MEDS: SYMBICORT 160-4.5 MCG INHALER INHALATION SCH ×2 (08:12→20:00)
[2019-11-04] MEDS: ALBUTEROL HFA INHALER INHALATION SCH ×4 (08:12→20:00)
--- NOTE | 2019-11-04 09:37 | CDI ---
Date: 11/04/2019 08:49:37 AM From: Yara Saldivar RN CCDS Admit Date: 11/02/2019 11:51:00 AM Patient Name: Yue Craig Visit Number: [id number] Discharge Date: ATTENTION: The Clinical Documentation Specialists (CDI) and [facility] Coding Staff appreciate your assistance in clarifying documentation. Please respond to the clarification below the line at the bottom and electronically sign. The CDI & [facility] Coding staff will review the response and follow-up if needed. Please note: Queries are made part of the Legal Health Record. If you have any questions, please contact the author of this message via ITS. Dr. Maggie Adan The COVID-19 test obtained on 10/31 was reported as Negative on 10/31 Per Internal Medicine Progress Note 11/02 Suspected COVID 19 infection; test Negative 59-year-old female presents to the ED with fever, cough shortness of breath for 2-3 days. Medical History oxygen dependent COPD, chronic tobacco dependence and HLD Clinical Indicators Patient reported fever, cough and shortness of breath. 10/31 CXR: Right upper lobe consolidation. 11/01 CXR: Worsening right upper lobe infiltrate. 10/31 VS in ED Triage: T: 101.5, P: 96, R 24, Sat 97% on 3L nasal cannula 10/31 WBC: 19.7, Treatment: 11/02 Pulmonary consult: Acute Hypoxic respiratory failure secondary to right upper lobe consolidation most likely community-acquired bronchopneumonia, COVID 19 screen negative. 10/31 Azithromycin Ivpb x 1, 11/01 Azithromycin Po daily In order to capture the severity of condition, please clarify the COVID-19 status: False negative, treating for COVID-19 infection COVID-19 ruled out Other, please specify (Last Form Revision: August 2019) COVID-19 ruled out MTDD
[2019-11-04] MEDS: MORPHINE SULFATE 4 MG/ML SYRINGE IVP PRN ×3 (09:50→20:46)
[2019-11-04] MEDS ORDERED: MAGNESIUM HYDROXIDE 2,400 MG/10 ML CUP PO PRN (11:30)
[2019-11-04] MEDS: SODIUM CHLORIDE 0.9% 1,000 ML IV SCH ×3 (12:07→23:42)
--- NOTE | 2019-11-04 12:21 | P.PN ---
Subjective Progress Note Date: 11/04/19 Principal diagnosis: Acute hypoxic respiratory failure secondary to right upper lobe consolidation most likely community-acquired bronchopneumonia. CoVID 19 screen negative. This is a pleasant 59-year-old female patient who has a history of oxygen dependent chronic obstructive pulmonary disease, chronic tobacco dependence, hyperlipidemia. She presented here to the emergency room on 11/01/2019 with complaints of increasing shortness of breath cough, congestion and fever for 2-3 days prior to her arrival. Her temperature was as high as 102. She also had an episode of diarrhea. Chest x-ray shows significant right upper lobe pneumonia. She is seen today in consultation on the regular medical floor. She is currently awake and alert in no acute distress. She is maintaining O2 saturations in the low 90s on 4 L/m per nasal cannula. Afebrile this morning. She's had a T-max of 101.5 here. Blood and sputum cultures are pending. White count 17.7. Hemoglobin 10.6. Sodium 136. Potassium 3.6. Creatinine 0.49. Penaloza virus not detected. She's been initiated on azithromycin and ceftriaxone. She is on bronchodilators and IV Solu-Medrol. 0.9#875 ML's per hour. Heparin for DVT prophylaxis. The patient is seen today 11/04/2019 in follow-up on the regular medical floor. She is currently resting comfortably in bed. Awake and alert in no acute distress. Still with a loose productive cough. Still short of breath with exertion. Chest x-ray continues to show persistent right upper lobe acute infiltrate on the background of chronic emphysematous changes. No significant change from x-ray. New small tiny bilateral effusions noted. Blood culture reveals no growth to date. Sputum culture pending. White count 15.7. Hemoglobin 10.9. MCV 103. Sodium 145. Potassium 3.9. Creatinine 0.41. She is continued on bronchodilators, antibiotics in the form of ceftriaxone and azithromycin, IV Solu-Medrol. Objective - Vital Signs Vital signs: Vital Signs Temp 97.3 F L 11/04/19 07:00 Pulse 68 11/04/19 07:00 Resp 17 11/04/19 07:00 BP 110/69 11/04/19 07:00 Pulse Ox 93 L 11/04/19 07:00 Intake & Output 11/03/19 11/04/1911/03/20 18:59 06:59 18:59 Other: Voiding Method Toilet Toilet # Voids 2 1 - Exam GENERAL EXAM: Alert, pleasant 59-year-old female patient, on 4 L nasal cannula, comfortable in no apparent distress. HEAD: Normocephalic. EYES: Normal reaction of pupils, equal size. NOSE: Clear with pink turbinates. THROAT: No erythema or exudates. NECK: No masses, no JVD. CHEST: No chest wall deformity. LUNGS: Equal air entry with few scattered rhonchi more so on the right lung, end expiratory wheeze, diminished. CVS: S1 and S2 normal with no audible murmur, regular rhythm. ABDOMEN: No hepatosplenomegaly, normal bowel sounds, no guarding or rigidity. SPINE: No scoliosis or deformity SKIN: No rashes CENTRAL NERVOUS SYSTEM: No focal deficits, tone is normal in all 4 extremities. EXTREMITIES: There is no peripheral edema. No clubbing, no cyanosis. Peripheral pulses are intact. - Labs CBC & Chem 7: 11/04/19 06:47 11/04/19 06:47 Labs: Abnormal Lab Results - Last 24 Hours (Table) 11/03/19 11/04/19 11/04/19 Range/Units 07:30 06:47 06:47 WBC 15.7 H (3.8-10.6) k/uL RBC 3.34 L (3.80-5.40) m/uL Hgb 10.9 L (11.4-16.0) gm/dL MCV 103.1 H (80.0-100.0) fL Neutrophils # 14.4 H (1.3-7.7) k/uL Lymphocytes # 0.7 L (1.0-4.8) k/uL Chloride 108 H (98-107) mmol/L Creatinine 0.41 L (0.52-1.04) mg/dL Glucose 138 H (74-99) mg/dL Procalcitonin 1.26 H (0.02-0.09) ng/mL Microbiology - Last 24 Hours (Table) 11/01/19 22:00 Blood Culture - Preliminary Blood No Growth after 48 hours 11/02/19 20:30 Gram Stain - Preliminary Sputum Sputum Culture - Preliminary Assessment and Plan Assessment: 1 Acute hypoxic respiratory failure secondary to right upper lobe consolidation most likely community-acquired bronchopneumonia, Covid 19 screen negative 2 Leukocytosis secondary to above 3 Acute exacerbation of chronic obstructive pulmonary disease secondary to above 4 Chronic tobacco dependence 5 Hyperlipidemia 6 Hypothyroidism Plan The patient was seen and evaluated by Dr. Love Chest x-ray reviewed. Stable right upper lobe pneumonia Continue ceftriaxone and azithromycin Continue Symbicort continue DuoNeb's Continue IV Solu-Medrol Encouraged regarding the importance of complete smoking cessation Continue NicoDerm patch Repeat chest x-ray in a.m. We will continue to follow make further recommendations based on her clinical status I, the cosigning physician, performed a history & physical examination of the patient. Lungs sounds few scattered rhonchi more so on the right, and expiratory wheeze, diminished Maintaining good O2 saturations in the 90s on 4 L/m per nasal cannula. I discussed the assessment and plan of care with my nurse practition er, Carley Andrade. I attest to the above consultation as dictated by her.
[2019-11-04] MEDS: traZODone HCL 100 MG TAB PO SCH (20:47)
[2019-11-04] MEDS: DOCUSATE 100 MG CAP PO SCH (20:48)
[2019-11-04] MEDS: SERTRALINE 100 MG TAB PO SCH (20:48)
[2019-11-04] MEDS: AZITHROMYCIN 500 MG TAB PO SCH (20:48)
[2019-11-05] MEDS: methylPREDNISolone SOD SUCCI 125 MG/2 ML VIAL IV SCH (05:05)
[2019-11-05] MEDS: LEVOTHYROXINE 50 MCG TAB PO SCH (05:05)
[2019-11-05 06:30] LABS: Basophils % (A) 0 %; Eosinophils % (A) 0 %; HCT 34.5 % (34.0-46.0); HGB 11.2 gm/dL (11.4-16.0); Lymphocytes # (A) 0.9 k/uL (1.0-4.8); Lymphocytes % (A) 4 %; MCH 33.7 pg (25.0-35.0); MCHC 32.4 g/dL (31.0-37.0); MCV 103.8 fL (80.0-100.0); Macrocytosis Slight; Mean Platelet Volume 8.6; Monocytes # (A) 0.6 k/uL (0-1.0); Monocytes % (A) 3 %; Neutrophils # (A) 20.7 k/uL (1.3-7.7); Neutrophils % (A) 92 %; Platelet Count 396 k/uL (150-450); RBC 3.32 m/uL (3.80-5.40); RDW 14.1 % (11.5-15.5); WBC 22.5 k/uL (3.8-10.6)
[2019-11-05 07:05] LABS: African American GFR (CKD) >90 (>60 ml/min/1.73 sqM); Anion Gap 7 mmol/L; Blood Urea Nitrogen 16 mg/dL (7-17); Calcium 9.2 mg/dL (8.4-10.2); Carbon Dioxide 30 mmol/L (22-30); Chloride 107 mmol/L (98-107); Glucose 144 mg/dL (74-99); Non-African American GFR(CKD) >90 (>60 ml/min/1.73 sqM); Potassium 4.2 mmol/L (3.5-5.1); Sodium 144 mmol/L (137-145)
--- NOTE | 2019-11-05 07:25 | XR ---
EXAMINATION TYPE: XR chest 1V portable DATE OF EXAM: 11/05/2019 COMPARISON: 11/04/2019 HISTORY: Follow-up for pneumonia TECHNIQUE: Single frontal view of the chest is obtained. FINDINGS: More dense triangular-shaped right upper lobe apical airspace disease may represent postob structive atelectasis as there is elevation of the right minor fissure. There is increasing confluenc e of the more inferior consolidation near the interlobar fissure. Cardiomediastinal silhouette is enlarged. Some flattening of the diaphragm suggests underlying COPD. Very trace pleural effusions blunt the costophrenic angles. No acute osseous pathology. IMPRESSION: 1. Right apical consolidation may represent postobstructive atelectasis from endobronchial plugging a nd/or neoplasm. Bronchopneumonia is an alternative consideration. 2. Increasing confluence of the more inferior right upper lung opacity along the right minor fissure supporting multifocal pneumonia. 3. Trace pleural effusions and background emphysematous change.
[2019-11-05] MEDS: ALBUTEROL HFA INHALER INHALATION SCH ×4 (07:34→19:48)
[2019-11-05] MEDS: SYMBICORT 160-4.5 MCG INHALER INHALATION SCH ×2 (07:35→19:48)
[2019-11-05] MEDS: SODIUM CHLORIDE 0.9% 1,000 ML IV SCH ×3 (07:59→20:53)
[2019-11-05] MEDS: ATORVASTATIN 20 MG TAB PO SCH (07:59)
[2019-11-05] MEDS: HEPARIN SODIUM,PORCINE 5,000 UNIT/ML 1 ML VIAL SQ SCH ×2 (07:59→20:52)
[2019-11-05] MEDS: DOCUSATE 100 MG CAP PO SCH ×2 (07:59→20:53)
[2019-11-05] MEDS: POLYETHYLENE GLYCOL 3350 17 GM POWD.PACK PO SCH (07:59)
[2019-11-05] MEDS: GABAPENTIN 300 MG CAP PO SCH ×3 (07:59→20:53)
[2019-11-05] MEDS: BACLOFEN 10 MG TAB PO SCH ×2 (07:59→20:53)
[2019-11-05] MEDS: buPROPion XL 300 MG TAB.ER.24H PO SCH (07:59)
[2019-11-05] MEDS: MORPHINE SULFATE 4 MG/ML SYRINGE IVP PRN ×3 (08:03→20:52)
[2019-11-05] MEDS ORDERED: BISACODYL 10 MG SUPP RECTAL STA (12:39)
--- NOTE | 2019-11-05 13:23 | P.PN ---
Subjective Progress Note Date: 11/05/19 Principal diagnosis: Acute hypoxic respiratory failure secondary to right upper lobe consolidation related to community acquired bronchopneumonia This is a pleasant 59-year-old female patient who has a history of oxygen dependent chronic obstructive pulmonary disease, chronic tobacco dependence, hyperlipidemia. She presented here to the emergency room on 11/01/2019 with complaints of increasing shortness of breath cough, congestion and fever for 2-3 days prior to her arrival. Her temperature was as high as 102. She also had an episode of diarrhea. Chest x-ray shows significant right upper lobe pneumonia. She is seen today in consultation on the regular medical floor. She is currently awake and alert in no acute distress. She is maintaining O2 saturations in the low 90s on 4 L/m per nasal cannula. Afebrile this morning. She's had a T-max of 101.5 here. Blood and sputum cultures are pending. White count 17.7. Hemoglobin 10.6. Sodium 136. Potassium 3.6. Creatinine 0.49. Penaloza virus not detected. She's been initiated on azithromycin and ceftriaxone. She is on bronchodilators and IV Solu-Medrol. 0.9#875 ML's per hour. Heparin for DVT prophylaxis. The patient is seen today 11/04/2019 in follow-up on the regular medical floor. She is currently resting comfortably in bed. Awake and alert in no acute distress. Still with a loose productive cough. Still short of breath with exertion. Chest x-ray continues to show persistent right upper lobe acute infiltrate on the background of chronic emphysematous changes. No significant change from x-ray. New small tiny bilateral effusions noted. Blood culture reveals no growth to date. Sputum culture pending. White count 15.7. Hemoglobin 10.9. MCV 103. Sodium 145. Potassium 3.9. Creatinine 0.41. She is continued on bronchodilators, antibiotics in the form of ceftriaxone and azithromycin, IV Solu-Medrol. On 11/05/2019 patient seen in follow-up on general medical floor, she is calm and comfortable, in no acute distress, she remains on supplemental oxygen, currently down to 2 L, her pulse ox is 90-91%, no worsening dyspnea, breathing is comfortable, no hemoptysis, does get short of breath with exertion, tolerates activity well, no fever or chills, blood culture showed no growth, sputum culture showed presumptive staph aureus, and patient's currently on combination of Zithromax and Rocephin, awaiting final culture, on today's labs white blood cell count has trended up to 22.5, patient is on IV steroids at 60 mg every 6 hours, she has been afebrile, hemoglobin today is 11.2, electrolytes are within normal limits, BUN is 16 creatinine 0.4. Follow-up chest x-ray today shows right apical consolidation with postobstructive atelectasis from endobronchial plugging, bronchopneumonia is being considered for neoplasm. Possibly slightly improved chest x-ray. Trace pleural effusions. No acute events overnight Objective - Vital Signs Vital signs: Vital Signs Temp 97.7 F 11/05/19 07:00 Pulse 70 11/05/19 07:00 Resp 16 11/05/19 07:00 BP 136/76 11/05/19 07:00 Pulse Ox 90 L 11/05/19 11:47 Intake & Output 11/04/19 11/05/19 11/05/19 18:59 06:59 18:59 Other: Voiding Method Toilet # Voids 2 - Exam GENERAL EXAM: Alert, very pleasant, 59-year-old white female, on 2 L of oxygen and the pulse ox of 90-91% comfortable in no apparent distress. HEAD: Normocephalic/atraumatic. EYES: Normal reaction of pupils, equal size. Conjunctiva pink, sclera white. NOSE: Clear with pink turbinates. THROAT: No erythema or exudates. NECK: No masses, no JVD, no thyroid enlargement, no adenopathy. CHEST: No chest wall deformity. Symmetrical expansion. LUNGS: Equal air entry with no crackles, wheeze, rhonchi or dullness. CVS: Regular rate and rhythm, normal S1 and S2, no gallops, no murmurs, no rubs ABDOMEN: Soft, nontender. No hepatosplenomegaly, normal bowel sounds, no guarding or rigidity. EXTREMITIES: No clubbing, no edema, no cyanosis, 2+ pulses and upper and lower extremities. MUSCULOSKELETAL: Muscle strength and tone normal. SPINE: No scoliosis or deformity SKIN: No rashes CENTRAL NERVOUS SYSTEM: Alert and oriented -3. No focal deficits, tone is normal in all 4 extremities. PSYCHIATRIC: Alert and oriented -3. Appropriate affect. Intact judgment and insight. - Labs CBC & Chem 7: 11/05/19 05:35 11/05/19 05:35 Labs: Abnormal Lab Results - Last 24 Hours (Table) 11/05/19 11/05/19 Range/Units 05:35 05:35 WBC 22.5 H (3.8-10.6) k/uL RBC 3.32 L (3.80-5.40) m/uL Hgb 11.2 L (11.4-16.0) gm/dL MCV 103.8 H (80.0-100.0) fL Neutrophils # 20.7 H (1.3-7.7) k/uL Lymphocytes # 0.9 L (1.0-4.8) k/uL Creatinine 0.44 L (0.52-1.04) mg/dL Glucose 144 H (74-99) mg/dL Microbiology - Last 24 Hours (Table) 11/02/19 20:30 Gram Stain - Preliminary Sputum Sputum Culture - Preliminary Presumptive Staph aureus 11/01/19 22:00 Blood Culture - Preliminary Blood No Growth after 72 hours Assessment and Plan Plan: Assessment: #1. Acute hypoxic rest or a failure secondary to right upper lobe consolidation most likely related to community-acquired bronchopneumonia, quit 19 screen was negative #2. Leukocytosis secondary to the above, slightly worsened on today's labs on 11/05/2019, patient is afebrile, patient is also receiving IV steroids #3. Acute exacerbation of chronic obstructive pulmonary disease secondary to the above #4. Chronic tobacco dependence #5. Hyperlipidemia #6. Hypothyroidism #7. Advanced COPD, oxygen dependent #8. Depression Plan: Continue current medical treatment, continue current antibiotics, will follow the sputum cultures, will obtain a follow-up pro-calcitonin, we'll decrease the IV Solu-Medrol to 40 mg every 8 hours, continue breathing treatments, Symbicort. We'll continue to follow I performed a history & physical examination of the patient and discussed their management with my nurse practitioner, Antonia Chow. I reviewed the nurse practitioner's note and agree with the documented findings and plan of care. Lung sounds are positive for diminished breath sounds. The findings and the impression was discussed with the patient. I attest to the documentation by the nurse practitioner. Time with Patient: Less than 30
[2019-11-05] MEDS: methylPREDNISolone SOD SUCCI 40 MG/ML 1 ML VIAL IV SCH ×2 (15:46→23:36)
[2019-11-05] MEDS: AZITHROMYCIN 500 MG TAB PO SCH (20:53)
[2019-11-05] MEDS: traZODone HCL 100 MG TAB PO SCH (20:53)
[2019-11-05] MEDS: SERTRALINE 100 MG TAB PO SCH (20:53)
--- NOTE | 2019-11-06 00:56 | P.PN ---
Subjective Progress Note Date: 11/04/19 Principal diagnosis: RUL Pneumonia COPD exacerbation 59-year-old female patient passed medical history significant for oxygen dependent COPD presents to the emergency department today for evaluation of fever, cough, and shortness of breath. Patient states symptoms have been pre sent for the last 2-3 days. States that she does feel tightness in her chest with this. Denies any sputum production. States that she has been feverish and chilled, temperature is been as high as 102F. She denies any nausea, vomiting, abdominal pain, hematuria, dysuria, urinary frequency, urinary urgency. States she has been having 1 episode of diarrhea daily for the last couple of days. P atient denies any recent rash, numbness, tingling, dizziness, weakness, hematuria, dysuria, urinary urgency, urinary frequency, headache, visual changes, or any other complaints. Evaluation in ED revealed patient temperature to be at 101.5; elevated white blood count of 19,000 with mild elevation in liver enzymes; chest x-ray showed right upper lobe pneumonia; patient is started on IV Rocephin and azithromycin and is admitted to the hospital for further evaluation; patient is suspicious of covert 19 infection; testing is negatie. 11/03/2019 Patient currently denied any complaints of chest pain. Shortness of breath is about the same. Patient does have bilateral diffuse wheezing on exam. WBC is improving to 17.0 today. Currently being continued on antibiotics ceftriaxone and azithromycin. Pulmonary is following. Continue with oxygen therapy. No nausea vomiting or abdominal pain or diarrhea. Laboratory data showed WBC 17.7, hemoglobin 10.6, sodium 136, creatinine 0.49 CRP 378 and pro calcitonin 1.26. Both elevated. 11/03 Patient is currently sitting on the side of the bed. No complaints of chest pain. Still having cough with minimal sputum production and shortness of breath with exertion. Chest x-ray continues to show persistent right upper lobe acute infiltrate on the background of chronic emphysematous changes. New small tiny bilateral pleural effusions noted. Blood cultures showed no growth so far. WBC count improved to 15.7 today. Hemoglobin 10.9, MCV 103 BUN 13 and creatinine 0.41 patient has been afebrile. Pulmonary is following. Patient is being continued on IV antibiotics and breathing treatments. Current medications reviewed. Active Medications Acetaminophen (Tylenol Tab) 325 mg PO Q6HR PRN PRN Reason: Fever and/ or Pain Last Admin: 11/03/19 15:40 Dose: 325 mg Documented by: Albuterol Sulfate (Ventolin Hfa Inhaler) 2 puff INHALATION RT-QID PRN PRN Reason: Shortness Of Breath Or Wheezing Albuterol Sulfate (Ventolin Hfa Inhaler) 2 puff INHALATION RT-QID [facility] Last Admin: 11/03/19 19:38 Dose: 2 puff Documented by: Atorvastatin Calcium (Lipitor) 20 mg PO DAILY [facility] Last Admin: 11/03/19 07:43 Dose: 20 mg Documented by: Azithromycin (Zithromax) 500 mg PO DAILY@2100 [facility] Last Admin: 11/03/19 20:59 Dose: 500 mg Documented by: Baclofen (Lioresal) 10 mg PO BID [facility] Last Admin: 11/03/19 20:59 Dose: 10 mg Documented by: Budesonide/Formoterol Fumarate (Symbicort 160-4.5 Mcg Inhaler) 2 puff INHALATION RT-BID [facility] Last Admin: 11/03/19 19:38 Dose: 2 puff Documented by: Bupropion HCl (Wellbutrin Xl) 300 mg PO DAILY [facility] Last Admin: 11/03/19 07:43 Dose: 300 mg Documented by: Gabapentin (Neurontin) 600 mg PO TID [facility] Last Admin: 11/03/19 20:59 Dose: 600 mg Documented by: Heparin Sodium (Porcine) (Heparin) 5,000 unit SQ Q12HR [facility] Last Admin: 11/03/19 20:59 Dose: 5,000 unit Documented by: Sodium Chloride (Saline 0.9%) 1,000 mls @ 75 mls/hr IV .[id number] [facility] Last Admin: 11/03/19 20:58 Dose: 75 mls/hr Documented by: Ceftriaxone Sodium 1 gm/ (Sodium Chloride) 50 mls @ 100 mls/hr IVPB Q24H [facility] Last Admin: 11/03/19 20:59 Dose: 100 mls/hr Documented by: Sodium Chloride (Saline 0.9%) 1,000 mls @ 75 mls/hr IV .[id number] [facility] Last Admin: 11/03/19 23:22 Dose: Not Given Documented by: Levothyroxine Sodium (Synthroid) 50 mcg PO 0630 [facility] Last Admin: 11/03/19 05:48 Dose: 50 mcg Documented by: Methylprednisolone Sodium Succinate (Solu-Medrol) 60 mg IV Q6HR [facility] Last Admin: 11/03/19 23:59 Dose: 60 mg Documented by: Miscellaneous Information (Pneumonia Protocol Utilized) 1 each PO ONCE PRN PRN Reason: Per Protocol Morphine Sulfate (Morphine Sulfate (Inj)) 4 mg IVP Q4HR PRN PRN Reason: Pain Last Admin: 11/03/19 22:26 Dose: 4 mg Documented by: Polyethylene Glycol (Miralax) 17 gm PO DAILY [facility] Last Admin: 11/03/19 12:50 Dose: 17 gm Documented by: Sertraline HCl (Zoloft) 100 mg PO [facility] Last Admin: 11/03/19 20:59 Dose: 100 mg Documented by: Sumatriptan Succinate (Imitrex) 50 mg PO WEEKLY PRN PRN Reason: MIGRAINES Trazodone HCl (Desyrel) 100 mg PO [facility] Last Admin: 11/03/19 20:59 Dose: 100 mg Documented by: Objective - Vital Signs Vital signs: Vital Signs Temp 97.8 F 11/04/19 19:09 Pulse 67 11/04/19 19:09 Resp 20 11/04/19 19:09 BP 107/60 11/04/19 19:09 Pulse Ox 89 L 11/04/19 19:09 Intake & Output 11/04/19 11/04/19 11/05/19 06:59 18:59 06:59 Other: Voiding Method Toilet Toilet # Voids 1 2 - Exam General appearance: alert, in no apparent distress ENT exam: Present: normal exam, normal oropharynx, mucous membranes moist Respiratory exam: Present: normal lung sounds bilaterally, wheezes (scattered inspiratory and expiratory wheezes noted. ). Absent: respiratory distress, rales, rhonchi, stridor Cardiovascular Exam: Present: regular rate, normal rhythm, normal heart sounds. Absent: systolic murmur, diastolic murmur, rubs, gallop, clicks GI/Abdominal exam: Present: soft, normal bowel sounds. Absent: distended, tenderness, guarding, rebound, rigid Neurological exam: Present: alert, oriented X3, CN II-XII intact Psychiatric exam: Present: normal affect, normal mood Skin exam: Present: warm, dry, intact, normal color. Absent: rash - Labs CBC & Chem 7: 05/20/20 05:35 11/05/19 05:35 Labs: Abnormal Lab Results - Last 24 Hours (Table) 11/04/19 11/04/19 Range/Units 06:47 06:47 WBC 15.7 H (3.8-10.6) k/uL RBC 3.34 L (3.80-5.40) m/uL Hgb 10.9 L (11.4-16.0) gm/dL MCV 103.1 H (80.0-100.0) fL Neutrophils # 14.4 H (1.3-7.7) k/uL Lymphocytes # 0.7 L (1.0-4.8) k/uL Chloride 108 H (98-107) mmol/L Creatinine 0.41 L (0.52-1.04) mg/dL Glucose 138 H (74-99) mg/dL Microbiology - Last 24 Hours (Table) 11/01/19 22:00 Blood Culture - Preliminary Blood No Growth after 48 hours Assessment and Plan Assessment: 1. Right upper lobe pneumonia. Likely community-acquired pneumonia 2. Acute COPD exacerbation 3. Acute hypoxic respiratory failure secondary to above - continue patient on IV Rocephin and azithromycin; continue with O2 per nasal cannula keeping SpO2 greater than 92% - Pulmonary is following. 2. Suspected COVID 19 infection; test Negative 3. Mild transaminitis; possibly related to 1 and 2 - We will continue to monitor liver enzymes with possible abdominal ultrasound if liver enzymes continue to trend up 4. Hypothyroidism; levothyroxine 50 MCG daily 5. Hyperlipidemia; continue with home dose of Lipitor 20 mg by mouth daily at bedtime 6. Depression/sleep disorder; Zoloft 100 mg daily along with trazodone 100 mg daily at bedtime DVT prophylaxis; SCDs/subcu heparin CODE STATUS; full code Time with Patient: Greater than 30
[2019-11-06] MEDS ORDERED: FUROSEMIDE 10 MG/ML 2 ML VIAL IV ONE (00:59)
--- NOTE | 2019-11-06 00:59 | P.PN ---
Subjective Progress Note Date: 11/05/19 Principal diagnosis: RUL Pneumonia COPD exacerbation 59-year-old female patient passed medical history significant for oxygen dependent COPD presents to the emergency department today for evaluation of fever, cough, and shortness of breath. Patient states symptoms have been pre sent for the last 2-3 days. States that she does feel tightness in her chest with this. Denies any sputum production. States that she has been feverish and chilled, temperature is been as high as 102F. She denies any nausea, vomiting, abdominal pain, hematuria, dysuria, urinary frequency, urinary urgency. States she has been having 1 episode of diarrhea daily for the last couple of days. P atient denies any recent rash, numbness, tingling, dizziness, weakness, hematuria, dysuria, urinary urgency, urinary frequency, headache, visual changes, or any other complaints. Evaluation in ED revealed patient temperature to be at 101.5; elevated white blood count of 19,000 with mild elevation in liver enzymes; chest x-ray showed right upper lobe pneumonia; patient is started on IV Rocephin and azithromycin and is admitted to the hospital for further evaluation; patient is suspicious of covert 19 infection; testing is negatie. 11/03/2019 Patient currently denied any complaints of chest pain. Shortness of breath is about the same. Patient does have bilateral diffuse wheezing on exam. WBC is improving to 17.0 today. Currently being continued on antibiotics ceftriaxone and azithromycin. Pulmonary is following. Continue with oxygen therapy. No nausea vomiting or abdominal pain or diarrhea. Laboratory data showed WBC 17.7, hemoglobin 10.6, sodium 136, creatinine 0.49 CRP 378 and pro calcitonin 1.26. Both elevated. 11/03 Patient is currently sitting on the side of the bed. No complaints of chest pain. Still having cough with minimal sputum production and shortness of breath with exertion. Chest x-ray continues to show persistent right upper lobe acute infiltrate on the background of chronic emphysematous changes. New small tiny bilateral pleural effusions noted. Blood cultures showed no growth so far. WBC count improved to 15.7 today. Hemoglobin 10.9, MCV 103 BUN 13 and creatinine 0.41 patient has been afebrile. Pulmonary is following. Patient is being continued on IV antibiotics and breathing treatments. 11/05/19 Patient is still complaining of wet cough and shortness of breath. Able to walk to the bathroom but gets very tired and dyspneic. Currently on 2 L oxygen via nasal cannula. No fever no chills. Sputum cultures showed presumptive staph aureus. Currently patient is on antibiotics in the form of ceftriaxone and azithromycin. Laboratory test showed WBC count 22.5 today. Patient is on IV steroids as well. Continued on breathing treatments. Pulmonary is following. Current medications reviewed. Objective - Vital Signs Vital signs: Vital Signs Temp 98.3 F 11/05/19 20:07 Pulse 79 11/05/19 20:07 Resp 19 11/05/19 20:07 BP 121/72 11/05/19 20:07 Pulse Ox 91 L 11/05/19 20:07 Intake & Output 11/05/19 11/05/19 11/06/19 06:59 18:59 06:59 Weight 56.699 kg Other: Voiding Method Toilet Toilet # Voids 3 - Exam General appearance: alert, in no apparent distress ENT exam: Present: normal exam, normal oropharynx, mucous membranes moist Respiratory exam: Present: normal lung sounds bilaterally, wheezes (scattered inspiratory and expiratory wheezes noted. ). Absent: respiratory distress, rales, rhonchi, stridor Cardiovascular Exam: Present: regular rate, normal rhythm, normal heart sounds. Absent: systolic murmur, diastolic murmur, rubs, gallop, clicks GI/Abdominal exam: Present: soft, normal bowel sounds. Absent: distended, tenderness, guarding, rebound, rigid Neurological exam: Present: alert, oriented X3, CN II-XII intact Psychiatric exam: Present: normal affect, normal mood Skin exam: Present: warm, dry, intact, normal color. Absent: rash - Labs CBC & Chem 7: 11/05/19 05:35 11/05/19 05:35 Labs: Abnormal Lab Results - Last 24 Hours (Table) 11/05/19 11/05/19 Range/Units 05:35 05:35 WBC 22.5 H (3.8-10.6) k/uL RBC 3.32 L (3.80-5.40) m/uL Hgb 11.2 L (11.4-16.0) gm/dL MCV 103.8 H (80.0-100.0) fL Neutrophils # 20.7 H (1.3-7.7) k/uL Lymphocytes # 0.9 L (1.0-4.8) k/uL Creatinine 0.44 L (0.52-1.04) mg/dL Glucose 144 H (74-99) mg/dL Microbiology - Last 24 Hours (Table) 11/02/19 20:30 Gram Stain - Preliminary Sputum Sputum Culture - Preliminary Presumptive Staph aureus 11/01/19 22:00 Blood Culture - Preliminary Blood No Growth after 72 hours Assessment and Plan Assessment: 1. Right upper lobe pneumonia. Likely community-acquired pneumonia 2. Acute COPD exacerbation 3. Acute hypoxic respiratory failure secondary to above - continue patient on IV Rocephin and azithromycin; continue with O2 per nasal cannula keeping SpO2 greater than 92% - Pulmonary is following. 2. Suspected COVID 19 infection; test Negative 3. Mild transaminitis; possibly related to 1 and 2 - We will continue to monitor liver enzymes with possible abdominal ultrasound if liver enzymes continue to trend up 4. Hypothyroidism; levothyroxine 50 MCG daily 5. Hyperlipidemia; continue with home dose of Lipitor 20 mg by mouth daily at bedtime 6. Depression/sleep disorder; Zoloft 100 mg daily along with trazodone 100 mg daily at bedtime DVT prophylaxis; SCDs/subcu heparin CODE STATUS; full code Time with Patient: Greater than 30
[2019-11-06] MEDS: LEVOTHYROXINE 50 MCG TAB PO SCH (05:28)
[2019-11-06] MEDS: HEPARIN SODIUM,PORCINE 5,000 UNIT/ML 1 ML VIAL SQ SCH ×2 (07:43→20:39)
[2019-11-06] MEDS: buPROPion XL 300 MG TAB.ER.24H PO SCH (07:44)
[2019-11-06] MEDS: methylPREDNISolone SOD SUCCI 40 MG/ML 1 ML VIAL IV SCH ×3 (07:44→23:41)
[2019-11-06] MEDS: BACLOFEN 10 MG TAB PO SCH ×2 (07:44→20:39)
[2019-11-06] MEDS: DOCUSATE 100 MG CAP PO SCH ×2 (07:44→20:39)
[2019-11-06] MEDS: POLYETHYLENE GLYCOL 3350 17 GM POWD.PACK PO SCH (07:44)
[2019-11-06] MEDS: GABAPENTIN 300 MG CAP PO SCH ×3 (07:44→20:39)
[2019-11-06] MEDS: ATORVASTATIN 20 MG TAB PO SCH (07:44)
[2019-11-06] MEDS: ALBUTEROL HFA INHALER INHALATION SCH ×4 (07:52→19:50)
[2019-11-06] MEDS ORDERED: VANCOMYCIN IV PER PHARMACY 1 EACH MISC MISCELLANE PRN (07:52)
[2019-11-06] MEDS: SYMBICORT 160-4.5 MCG INHALER INHALATION SCH ×2 (07:52→19:50)
[2019-11-06] MEDS ORDERED: PIPERACILLIN-TAZOBACTAM 3.375 GM in SODIUM CHLORIDE 0.9% 100 ML IVPB SCH ×2 (08:00→10:00)
--- NOTE | 2019-11-06 08:16 | XR ---
EXAMINATION TYPE: XR chest 1V portable DATE OF EXAM: 11/06/2019 COMPARISON: 11/05/2019 INDICATION: Right lung pneumonia TECHNIQUE: Single frontal view of the chest is obtained. FINDINGS: The heart size is normal. The pulmonary vasculature is normal. There is a consolidation in the right upper lobe with some additional peripheral patchy infiltrates o n the right. Small right pleural and minimal left pleural effusions are present. IMPRESSION: 1. Small bilateral pleural effusions. 2. Right upper lobe consolidation appears stable. Continued follow-up to clearing is recommended.
[2019-11-06 08:20] LABS: Basophils # (A) 0.1 k/uL (0-0.2); Basophils % (A) 0 %; Eosinophils % (A) 0 %; HGB 11.9 gm/dL (11.4-16.0); Lymphocytes # (A) 1.3 k/uL (1.0-4.8); Lymphocytes % (A) 6 %; MCH 33.3 pg (25.0-35.0); MCHC 32.2 g/dL (31.0-37.0); MCV 103.4 fL (80.0-100.0); Macrocytosis Slight; Mean Platelet Volume 8.3; Monocytes % (A) 5 %; Neutrophils # (A) 20.3 k/uL (1.3-7.7); Neutrophils % (A) 89 %; Platelet Count 471 k/uL (150-450); RBC 3.58 m/uL (3.80-5.40); RDW 14.2 % (11.5-15.5); WBC 22.9 k/uL (3.8-10.6)
[2019-11-06 08:41] LABS: African American GFR (CKD) >90 (>60 ml/min/1.73 sqM); Anion Gap 5 mmol/L; Blood Urea Nitrogen 17 mg/dL (7-17); Calcium 9.1 mg/dL (8.4-10.2); Carbon Dioxide 35 mmol/L (22-30); Chloride 100 mmol/L (98-107); Glucose 104 mg/dL (74-99); Non-African American GFR(CKD) >90 (>60 ml/min/1.73 sqM); Sodium 140 mmol/L (137-145)
[2019-11-06] MEDS: VANCOMYCIN 1,000 MG in SODIUM CHLORIDE 0.9% 250 ML IVPB SCH ×3 (08:42→23:41)
[2019-11-06] MEDS: MORPHINE SULFATE 4 MG/ML SYRINGE IVP PRN (09:02)
[2019-11-06] MEDS: PIPERACILLIN-TAZOBACTAM 3.375 GM in SODIUM CHLORIDE 0.9% 100 ML IVPB SCH ×2 (11:02→17:42)
--- NOTE | 2019-11-06 12:17 | P.PN ---
Subjective Progress Note Date: 11/06/19 Principal diagnosis: Acute hypoxic respiratory failure secondary to right upper lobe consolidation related to community acquired bronchopneumonia This is a pleasant 59-year-old female patient who has a history of oxygen dependent chronic obstructive pulmonary disease, chronic tobacco dependence, hyperlipidemia. She presented here to the emergency room on 11/01/2019 with complaints of increasing shortness of breath cough, congestion and fever for 2-3 days prior to her arrival. Her temperature was as high as 102. She also had an episode of diarrhea. Chest x-ray shows significant right upper lobe pneumonia. She is seen today in consultation on the regular medical floor. She is currently awake and alert in no acute distress. She is maintaining O2 saturations in the low 90s on 4 L/m per nasal cannula. Afebrile this morning. She's had a T-max of 101.5 here. Blood and sputum cultures are pending. White count 17.7. Hemoglobin 10.6. Sodium 136. Potassium 3.6. Creatinine 0.49. Penaloza virus not detected. She's been initiated on azithromycin and ceftriaxone. She is on bronchodilators and IV Solu-Medrol. 0.9#875 ML's per hour. Heparin for DVT prophylaxis. The patient is seen today 11/04/2019 in follow-up on the regular medical floor. She is currently resting comfortably in bed. Awake and alert in no acute distress. Still with a loose productive cough. Still short of breath with exertion. Chest x-ray continues to show persistent right upper lobe acute infiltrate on the background of chronic emphysematous changes. No significant change from x-ray. New small tiny bilateral effusions noted. Blood culture reveals no growth to date. Sputum culture pending. White count 15.7. Hemoglobin 10.9. MCV 103. Sodium 145. Potassium 3.9. Creatinine 0.41. She is continued on bronchodilators, antibiotics in the form of ceftriaxone and azithromycin, IV Solu-Medrol. On 11/05/2019 patient seen in follow-up on general medical floor, she is calm and comfortable, in no acute distress, she remains on supplemental oxygen, currently down to 2 L, her pulse ox is 90-91%, no worsening dyspnea, breathing is comfortable, no hemoptysis, does get short of breath with exertion, tolerates activity well, no fever or chills, blood culture showed no growth, sputum culture showed presumptive staph aureus, and patient's currently on combination of Zithromax and Rocephin, awaiting final culture, on today's labs white blood cell count has trended up to 22.5, patient is on IV steroids at 60 mg every 6 hours, she has been afebrile, hemoglobin today is 11.2, electrolytes are within normal limits, BUN is 16 creatinine 0.4. Follow-up chest x-ray today shows right apical consolidation with postobstructive atelectasis from endobronchial plugging, bronchopneumonia is being considered for neoplasm. Possibly slightly improved chest x-ray. Trace pleural effusions. No acute events overnight On 11/06/2019 patient seen in follow-up on general medical floor, her sputum culture did come back positive for methicillin-resistant staph aureus and we switched her antibiotics to Zosyn and vancomycin. Remains on 3 L of oxygen with a pulse ox of 93%, she is afebrile, hemodynamically patient is stable, breathing is nonlabored. Today's chest x-ray has been reviewed showing small bilateral pleural effusions, and right upper lobe consolidation which appears to be stable in appearance. Afebrile in the last 72 hours. No altered mentation. Today's labs have been reviewed showing persistence of leukocytosis with white blood cell count 22.9, hemoglobin is 11.9, sodium is 140 potassium is 4.0, chloride is 100, CO2 35, BUN 17 creatinine 0.53 Objective - Vital Signs Vital signs: Vital Signs Temp 97.8 F 11/06/19 07:00 Pulse 64 11/06/19 07:00 Resp 17 11/06/19 07:00 BP 125/60 11/06/19 07:00 Pulse Ox 93 L 11/06/19 07:00 Intake & Output 11/05/19 11/06/19 11/06/19 18:59 06:59 18:59 Weight 56.699 kg Other: Voiding Method Toilet # Voids 3 - Exam GENERAL EXAM: Alert, very pleasant, 59-year-old white female, on 3 L of oxygen and the pulse ox of 93% comfortable in no apparent distress. HEAD: Normocephalic/atraumatic. EYES: Normal reaction of pupils, equal size. Conjunctiva pink, sclera white. NOSE: Clear with pink turbinates. THROAT: No erythema or exudates. NECK: No masses, no JVD, no thyroid enlargement, no adenopathy. CHEST: No chest wall deformity. Symmetrical expansion. LUNGS: Equal air entry with no crackles, wheeze, rhonchi or dullness. CVS: Regular rate and rhythm, normal S1 and S2, no gallops, no murmurs, no rubs ABDOMEN: Soft, nontender. No hepatosplenomegaly, normal bowel sounds, no guarding or rigidity. EXTREMITIES: No clubbing, no edema, no cyanosis, 2+ pulses and upper and lower extremities. MUSCULOSKELETAL: Muscle strength and tone normal. SPINE: No scoliosis or deformity SKIN: No rashes CENTRAL NERVOUS SYSTEM: Alert and oriented -3. No focal deficits, tone is normal in all 4 extremities. PSYCHIATRIC: Alert and oriented -3. Appropriate affect. Intact judgment and insight. - Labs CBC & Chem 7: 11/06/19 07:35 11/06/19 07:35 Labs: Abnormal Lab Results - Last 24 Hours (Table) 11/06/19 11/06/19 Range/Units 07:35 07:35 WBC 22.9 H (3.8-10.6) k/uL RBC 3.58 L (3.80-5.40) m/uL MCV 103.4 H (80.0-100.0) fL Plt Count 471 H (150-450) k/uL Neutrophils # 20.3 H (1.3-7.7) k/uL Carbon Dioxide 35 H (22-30) mmol/L Glucose 104 H (74-99) mg/dL Microbiology - Last 24 Hours (Table) 11/02/19 20:30 Gram Stain - Final Sputum Sputum Culture - Final Methicillin resist S. aureus 11/01/19 22:00 Blood Culture - Preliminary Blood No Growth after 96 hours Assessment and Plan Plan: Assessment: #1. Acute hypoxic rest or a failure secondary to methicillin-resistant staph aureus related pneumonia with chest x-ray showing right upper lobe consolidation, COVID 19 screen was negative #2. Leukocytosis secondary to the above, slightly worsened on today's labs on 11/05/2019, patient is afebrile, patient is also receiving IV steroids On 11/06/2019 patient's sputum culture resulted in MRSA, and patient's antibiotics have been switched from Rocephin and Zithromax to Zosyn and vancomycin #3. Acute exacerbation of chronic obstructive pulmonary disease secondary to t he above #4. Chronic tobacco dependence #5. Hyperlipidemia #6. Hypothyroidism #7. Advanced COPD, oxygen dependent #8. Depression Plan: We'll switch antibiotics from Rocephin and Zithromax to Zosyn and vancomycin, continue all other medical treatments, obtain follow-up blood work and chest x- ray tomorrow, patient is afebrile, no worsening dyspnea, leukocytosis remains elevated, we'll continue to follow. I performed a history & physical examination of the patient and discussed their management with my nurse practitioner, Atnonia Chow. I reviewed the nurse practitioner's note and agree with the documented findings and plan of care. Lung sounds are positive for diminished breath sounds. The findings and the impression was discussed with the patient. I attest to the documentation by the nurse practitioner. Time with Patient: Less than 30
[2019-11-06] MEDS: FUROSEMIDE 10 MG/ML 2 ML VIAL IV SCH (15:53)
[2019-11-06] MEDS: traZODone HCL 100 MG TAB PO SCH (20:39)
[2019-11-06] MEDS: SERTRALINE 100 MG TAB PO SCH (20:39)
--- NOTE | 2019-11-07 01:05 | P.PN ---
Subjective Progress Note Date: 11/06/19 Principal diagnosis: RUL Pneumonia COPD exacerbation 59-year-old female patient passed medical history significant for oxygen dependent COPD presents to the emergency department today for evaluation of fever, cough, and shortness of breath. Patient states symptoms have been pre sent for the last 2-3 days. States that she does feel tightness in her chest with this. Denies any sputum production. States that she has been feverish and chilled, temperature is been as high as 102F. She denies any nausea, vomiting, abdominal pain, hematuria, dysuria, urinary frequency, urinary urgency. States she has been having 1 episode of diarrhea daily for the last couple of days. P atient denies any recent rash, numbness, tingling, dizziness, weakness, hematuria, dysuria, urinary urgency, urinary frequency, headache, visual changes, or any other complaints. Evaluation in ED revealed patient temperature to be at 101.5; elevated white blood count of 19,000 with mild elevation in liver enzymes; chest x-ray showed right upper lobe pneumonia; patient is started on IV Rocephin and azithromycin and is admitted to the hospital for further evaluation; patient is suspicious of covert 19 infection; testing is negatie. 11/03/2019 Patient currently denied any complaints of chest pain. Shortness of breath is about the same. Patient does have bilateral diffuse wheezing on exam. WBC is improving to 17.0 today. Currently being continued on antibiotics ceftriaxone and azithromycin. Pulmonary is following. Continue with oxygen therapy. No nausea vomiting or abdominal pain or diarrhea. Laboratory data showed WBC 17.7, hemoglobin 10.6, sodium 136, creatinine 0.49 CRP 378 and pro calcitonin 1.26. Both elevated. 11/03 Patient is currently sitting on the side of the bed. No complaints of chest pain. Still having cough with minimal sputum production and shortness of breath with exertion. Chest x-ray continues to show persistent right upper lobe acute infiltrate on the background of chronic emphysematous changes. New small tiny bilateral pleural effusions noted. Blood cultures showed no growth so far. WBC count improved to 15.7 today. Hemoglobin 10.9, MCV 103 BUN 13 and creatinine 0.41 patient has been afebrile. Pulmonary is following. Patient is being continued on IV antibiotics and breathing treatments. 11/05/19 Patient is still complaining of wet cough and shortness of breath. Able to walk to the bathroom but gets very tired and dyspneic. Currently on 2 L oxygen via nasal cannula. No fever no chills. Sputum cultures showed presumptive staph aureus. Currently patient is on antibiotics in the form of ceftriaxone and azithromycin. Laboratory test showed WBC count 22.5 today. Patient is on IV steroids as well. Continued on breathing treatments. Pulmonary is following. 11/06/2019 Patient is currently sitting on the side of the bed, still having wet congested cough. Leukocytosis is worsening with WBC count 22.9. Repeat chest x-ray showed bibasilar lateral small effusions. Patient was given a dose of IV Lasix. Antibiotics were changed to vancomycin and Zosyn as per pulmonary recommendations. Patient has been afebrile. Still requiring oxygen at 2 L via nasal cannula. Blood pressure is fairly controlled. No nausea vomiting or abdominal pain or diarrhea. Current medications reviewed. Objective - Vital Signs Vital signs: Vital Signs Temp 98.1 F 11/06/19 19:16 Pulse 70 11/06/19 19:16 Resp 17 11/06/19 19:16 BP 103/49 11/06/19 19:16 Pulse Ox 92 L 11/06/19 19:16 Intake & Output 11/06/19 11/06/19 11/07/19 06:59 18:59 06:59 Other: Voiding Method Toilet Toilet # Voids 3 1 - Exam General appearance: alert, in no apparent distress ENT exam: Present: normal exam, normal oropharynx, mucous membranes moist Respiratory exam: Present: normal lung sounds bilaterally, basilar crackles (scattered inspiratory and expiratory wheezes noted. ). Absent: respiratory distress, rales, rhonchi, stridor Cardiovascular Exam: Present: regular rate, normal rhythm, normal heart sounds. Absent: systolic murmur, diastolic murmur, rubs, gallop, clicks GI/Abdominal exam: Present: soft, normal bowel sounds. Absent: distended, tenderness, guarding, rebound, rigid Neurological exam: Present: alert, oriented X3, CN II-XII intact Psychiatric exam: Present: normal affect, normal mood Skin exam: Present: warm, dry, intact, normal color. Absent: rash - Labs CBC & Chem 7: 11/06/19 07:35 11/06/19 07:35 Labs: Abnormal Lab Results - Last 24 Hours (Table) 11/06/19 11/06/19 11/06/19 Range/Units 07:35 07:35 07:35 WBC 22.9 H (3.8-10.6) k/uL RBC 3.58 L (3.80-5.40) m/uL MCV 103.4 H (80.0-100.0) fL Plt Count 471 H (150-450) k/uL Neutrophils # 20.3 H (1.3-7.7) k/uL Carbon Dioxide 35 H (22-30) mmol/L Glucose 104 H (74-99) mg/dL Procalcitonin 0.31 H (0.02-0.09) ng/mL Microbiology - Last 24 Hours (Table) 11/02/19 20:30 Gram Stain - Final Sputum Sputum Culture - Final Methicillin resist S. aureus 11/01/19 22:00 Blood Culture - Preliminary Blood No Growth after 96 hours Assessment and Plan Assessment: 1. Right upper lobe pneumonia. Likely community-acquired pneumonia 2. Acute COPD exacerbation 3. Acute hypoxic respiratory failure secondary to above - continue patient on IV Rocephin and azithromycin; continue with O2 per nasal cannula keeping SpO2 greater than 92% - Pulmonary is following. 2. Suspected COVID 19 infection; test Negative 3. Mild transaminitis; possibly related to 1 and 2 - We will continue to monitor liver enzymes with possible abdominal ultrasound if liver enzymes continue to trend up 4. Hypothyroidism; levothyroxine 50 MCG daily 5. Hyperlipidemia; continue with home dose of Lipitor 20 mg by mouth daily at bedtime 6. Depression/sleep disorder; Zoloft 100 mg daily along with trazodone 100 mg daily at bedtime DVT prophylaxis; SCDs/subcu heparin CODE STATUS; full code Time with Patient: Greater than 30
[2019-11-07] MEDS: PIPERACILLIN-TAZOBACTAM 3.375 GM in SODIUM CHLORIDE 0.9% 100 ML IVPB SCH ×3 (02:14→18:22)
[2019-11-07] MEDS: MORPHINE SULFATE 4 MG/ML SYRINGE IVP PRN ×3 (02:25→18:29)
[2019-11-07] MEDS: LEVOTHYROXINE 50 MCG TAB PO SCH (05:57)
[2019-11-07] MEDS: ALBUTEROL HFA INHALER INHALATION SCH ×4 (08:20→20:30)
[2019-11-07] MEDS: SYMBICORT 160-4.5 MCG INHALER INHALATION SCH ×2 (08:20→20:30)
[2019-11-07] MEDS: methylPREDNISolone SOD SUCCI 40 MG/ML 1 ML VIAL IV SCH ×2 (08:41→16:18)
[2019-11-07] MEDS: VANCOMYCIN 1,000 MG in SODIUM CHLORIDE 0.9% 250 ML IVPB SCH ×2 (08:42→16:18)
[2019-11-07] MEDS: HEPARIN SODIUM,PORCINE 5,000 UNIT/ML 1 ML VIAL SQ SCH ×2 (08:43→21:47)
[2019-11-07] MEDS: POLYETHYLENE GLYCOL 3350 17 GM POWD.PACK PO SCH (08:43)
[2019-11-07] MEDS: buPROPion XL 300 MG TAB.ER.24H PO SCH (08:44)
[2019-11-07] MEDS: GABAPENTIN 300 MG CAP PO SCH ×3 (08:44→21:47)
[2019-11-07] MEDS: BACLOFEN 10 MG TAB PO SCH ×2 (08:44→21:47)
[2019-11-07] MEDS: ATORVASTATIN 20 MG TAB PO SCH (08:44)
[2019-11-07] MEDS: DOCUSATE 100 MG CAP PO SCH ×2 (08:44→21:47)
[2019-11-07] MEDS: FUROSEMIDE 10 MG/ML 2 ML VIAL IV SCH (08:44)
[2019-11-07 10:27] LABS: Basophils # (A) 0.1 k/uL (0-0.2); Basophils % (A) 0 %; Eosinophils % (A) 0 %; HCT 38.1 % (34.0-46.0); HGB 11.8 gm/dL (11.4-16.0); Lymphocytes # (A) 1.5 k/uL (1.0-4.8); Lymphocytes % (A) 6 %; MCH 31.8 pg (25.0-35.0); MCV 102.6 fL (80.0-100.0); Macrocytosis Slight; Mean Platelet Volume 8.5; Monocytes # (A) 1.3 k/uL (0-1.0); Monocytes % (A) 6 %; Neutrophils # (A) 20.4 k/uL (1.3-7.7); Neutrophils % (A) 87 %; Platelet Count 486 k/uL (150-450); RBC 3.72 m/uL (3.80-5.40); RDW 13.8 % (11.5-15.5); WBC 23.5 k/uL (3.8-10.6)
[2019-11-07 10:41] LABS: African American GFR (CKD) >90 (>60 ml/min/1.73 sqM); Anion Gap 6 mmol/L; Blood Urea Nitrogen 16 mg/dL (7-17); Calcium 8.6 mg/dL (8.4-10.2); Carbon Dioxide 36 mmol/L (22-30); Chloride 96 mmol/L (98-107); Glucose 119 mg/dL (74-99); Non-African American GFR(CKD) >90 (>60 ml/min/1.73 sqM); Potassium 4.2 mmol/L (3.5-5.1); Sodium 138 mmol/L (137-145)
--- NOTE | 2019-11-07 12:36 | P.PN ---
Subjective Progress Note Date: 11/07/19 Principal diagnosis: Acute hypoxic respiratory failure secondary to right upper lobe consolidation most likely community-acquired bronchopneumonia. CoVID 19 screen negative. This is a pleasant 59-year-old female patient who has a history of oxygen dependent chronic obstructive pulmonary disease, chronic tobacco dependence, hyperlipidemia. She presented here to the emergency room on 11/01/2019 with complaints of increasing shortness of breath cough, congestion and fever for 2-3 days prior to her arrival. Her temperature was as high as 102. She also had an episode of diarrhea. Chest x-ray shows significant right upper lobe pneumonia. She is seen today in consultation on the regular medical floor. She is currently awake and alert in no acute distress. She is maintaining O2 saturations in the low 90s on 4 L/m per nasal cannula. Afebrile this morning. She's had a T-max of 101.5 here. Blood and sputum cultures are pending. White count 17.7. Hemoglobin 10.6. Sodium 136. Potassium 3.6. Creatinine 0.49. Penaloza virus not detected. She's been initiated on azithromycin and ceftriaxone. She is on bronchodilators and IV Solu-Medrol. 0.9#875 ML's per hour. Heparin for DVT prophylaxis. The patient is seen today 11/07/2019 follow-up on the regular medical floor. She is awake and alert in no acute distress. She is maintaining good O2 saturations in the 90s on 3 L/m per nasal cannula. She's been afebrile. Hemodynamically stable. Sputum cultures positive for MRSA. Culture reveals no growth. White count 23.5. Hemoglobin 11.8. Sodium 138. Potassium 4.2. Creatinine 0.60. She remains on vancomycin and Zosyn along with bronchodilators and IV Solu-Medrol. She also is on Lasix 20 mg IV daily. Objective - Vital Signs Vital signs: Vital Signs Temp 97.9 F 11/07/19 07:00 Pulse 64 11/07/19 07:00 Resp 17 11/07/19 07:00 BP 120/63 11/07/19 07:00 Pulse Ox 92 L 11/07/19 07:00 Intake & Output 11/06/19 11/07/19 11/07/19 18:59 06:59 18:59 Other: Voiding Method Toilet Toilet # Voids 3 1 - Exam GENERAL EXAM: Alert, pleasant 59-year-old female patient, on 3 L nasal cannula, comfortable in no apparent distress. HEAD: Normocephalic. EYES: Normal reaction of pupils, equal size. NOSE: Clear with pink turbinates. THROAT: No erythema or exudates. NECK: No masses, no JVD. CHEST: No chest wall deformity. LUNGS: Equal air entry with few scattered rhonchi more so on the right lung, end expiratory wheeze, diminished. CVS: S1 and S2 normal with no audible murmur, regular rhythm. ABDOMEN: No hepatosplenomegaly, normal bowel sounds, no guarding or rigidity. SPINE: No scoliosis or deformity SKIN: No rashes CENTRAL NERVOUS SYSTEM: No focal deficits, tone is normal in all 4 extremities. EXTREMITIES: There is no peripheral edema. No clubbing, no cyanosis. Peripheral pulses are intact. - Labs CBC & Chem 7: 11/07/19 08:40 11/07/19 08:40 Labs: Abnormal Lab Results - Last 24 Hours (Table) 11/06/19 11/07/19 11/07/19 Range/Units 07:35 08:40 08:40 WBC 23.5 H (3.8-10.6) k/uL RBC 3.72 L (3.80-5.40) m/uL MCV 102.6 H (80.0-100.0) fL Plt Count 486 H (150-450) k/uL Neutrophils # 20.4 H (1.3-7.7) k/uL Monocytes # 1.3 H (0-1.0) k/uL Chloride 96 L (98-107) mmol/L Carbon Dioxide 36 H (22-30) mmol/L Glucose 119 H (74-99) mg/dL Procalcitonin 0.31 H (0.02-0.09) ng/mL Microbiology - Last 24 Hours (Table) 11/01/19 22:00 Blood Culture - Preliminary Blood No Growth after 120 hours 11/02/19 20:30 Gram Stain - Final Sputum Sputum Culture - Final Methicillin resist S. aureus Assessment and Plan Assessment: 1 Acute hypoxic respiratory failure secondary to right upper lobe consolidation secondary to MRSA, Covid 19 screen negative 2 Leukocytosis secondary to above 3 Acute exacerbation of chronic obstructive pulmonary disease secondary to above 4 Chronic tobacco dependence 5 Hyperlipidemia 6 Hypothyroidism Plan The patient was seen and evaluated by Dr. Love Continue vancomycin and Zosyn Continue Symbicort continue DuoNeb's Continue IV Solu-Medrol Encouraged regarding the importance of complete smoking cessation Repeat chest x-ray in a.m. We will continue to follow and make further recommendations based on her clinical status I, the cosigning physician, performed a history & physical examination of the patient. Lungs sounds few scattered rhonchi more so on the right, and expiratory wheeze, diminished Maintaining good O2 saturations in the 90s on 3 L/m per nasal cannula. I discussed the assessment and plan of care with my nurse practit jessica, Carley Andrade. I attest to the above note as dictated by her.
[2019-11-07] MEDS: SERTRALINE 100 MG TAB PO SCH (21:47)
[2019-11-07] MEDS: traZODone HCL 100 MG TAB PO SCH (21:47)
[2019-11-08] MEDS: VANCOMYCIN 1,000 MG in SODIUM CHLORIDE 0.9% 250 ML IVPB SCH ×4 (00:22→23:54)
[2019-11-08] MEDS: methylPREDNISolone SOD SUCCI 40 MG/ML 1 ML VIAL IV SCH ×4 (00:22→23:55)
--- NOTE | 2019-11-08 01:37 | P.PN ---
Subjective Progress Note Date: 11/07/19 Principal diagnosis: RUL Pneumonia COPD exacerbation 59-year-old female patient passed medical history significant for oxygen dependent COPD presents to the emergency department today for evaluation of fever, cough, and shortness of breath. Patient states symptoms have been pre sent for the last 2-3 days. States that she does feel tightness in her chest with this. Denies any sputum production. States that she has been feverish and chilled, temperature is been as high as 102F. She denies any nausea, vomiting, abdominal pain, hematuria, dysuria, urinary frequency, urinary urgency. States she has been having 1 episode of diarrhea daily for the last couple of days. P atient denies any recent rash, numbness, tingling, dizziness, weakness, hematuria, dysuria, urinary urgency, urinary frequency, headache, visual changes, or any other complaints. Evaluation in ED revealed patient temperature to be at 101.5; elevated white blood count of 19,000 with mild elevation in liver enzymes; chest x-ray showed right upper lobe pneumonia; patient is started on IV Rocephin and azithromycin and is admitted to the hospital for further evaluation; patient is suspicious of covert 19 infection; testing is negatie. 11/03/2019 Patient currently denied any complaints of chest pain. Shortness of breath is about the same. Patient does have bilateral diffuse wheezing on exam. WBC is improving to 17.0 today. Currently being continued on antibiotics ceftriaxone and azithromycin. Pulmonary is following. Continue with oxygen therapy. No nausea vomiting or abdominal pain or diarrhea. Laboratory data showed WBC 17.7, hemoglobin 10.6, sodium 136, creatinine 0.49 CRP 378 and pro calcitonin 1.26. Both elevated. 11/03 Patient is currently sitting on the side of the bed. No complaints of chest pain. Still having cough with minimal sputum production and shortness of breath with exertion. Chest x-ray continues to show persistent right upper lobe acute infiltrate on the background of chronic emphysematous changes. New small tiny bilateral pleural effusions noted. Blood cultures showed no growth so far. WBC count improved to 15.7 today. Hemoglobin 10.9, MCV 103 BUN 13 and creatinine 0.41 patient has been afebrile. Pulmonary is following. Patient is being continued on IV antibiotics and breathing treatments. 11/05/19 Patient is still complaining of wet cough and shortness of breath. Able to walk to the bathroom but gets very tired and dyspneic. Currently on 2 L oxygen via nasal cannula. No fever no chills. Sputum cultures showed presumptive staph aureus. Currently patient is on antibiotics in the form of ceftriaxone and azithromycin. Laboratory test showed WBC count 22.5 today. Patient is on IV steroids as well. Continued on breathing treatments. Pulmonary is following. 11/06/2019 Patient is currently sitting on the side of the bed, still having wet congested cough. Leukocytosis is worsening with WBC count 22.9. Repeat chest x-ray showed bibasilar lateral small effusions. Patient was given a dose of IV Lasix. Antibiotics were changed to vancomycin and Zosyn as per pulmonary recommendations. Patient has been afebrile. Still requiring oxygen at 2 L via nasal cannula. Blood pressure is fairly controlled. No nausea vomiting or abdominal pain or diarrhea. 11/07/2019 Patient is currently sitting on the bed comfortably. Breathing status is improving. No acute distress. Still requiring oxygen at 3 L via nasal cannula. Bilateral coarse breath sounds on examination. Patient is being continued on antibiotics in the form of vancomycin and Zosyn. Sputum culture showed MRSA. Blood cultures showed no growth. WBC 23.5, hemoglobin 11.8 and BUN 16 and creatinine 0.6 Procalcitonin level trending down to 0.18 Patient will be continued on IV Lasix for 1 more day. Monitor CBC and BMP tomorrow. Current medications reviewed. Objective - Vital Signs Vital signs: Vital Signs Temp 98.8 F 11/07/19 19:45 Pulse 59 L 11/07/19 19:45 Resp 18 11/07/19 19:45 BP 136/78 11/07/19 19:45 Pulse Ox 94 L 11/07/19 19:45 Intake & Output 11/07/19 11/07/19 11/08/19 06:59 18:59 06:59 Intake Total 400 Balance 400 Intake: Oral 400 Other: Voiding Method Toilet Toilet # Voids 1 2 - Exam General appearance: alert, in no apparent distress ENT exam: Present: normal exam, normal oropharynx, mucous membranes moist Respiratory exam: Present: normal lung sounds bilaterally, Scattered rhonchi and coarse breath sounds. (scattered inspiratory and expiratory wheezes noted. ). Absent: respiratory distress, rales, rhonchi, stridor Cardiovascular Exam: Present: regular rate, normal rhythm, normal heart sounds. Absent: systolic murmur, diastolic murmur, rubs, gallop, clicks GI/Abdominal exam: Present: soft, normal bowel sounds. Absent: distended, tenderness, guarding, rebound, rigid Neurological exam: Present: alert, oriented X3, CN II-XII intact Psychiatric exam: Present: normal affect, normal mood Skin exam: Present: warm, dry, intact, normal color. Absent: rash - Labs CBC & Chem 7: 11/07/19 08:40 11/07/19 08:40 Labs: Abnormal Lab Results - Last 24 Hours (Table) 11/07/19 11/07/19 11/07/19 Range/Units 08:40 08:40 08:40 WBC 23.5 H (3.8-10.6) k/uL RBC 3.72 L (3.80-5.40) m/uL MCV 102.6 H (80.0-100.0) fL Plt Count 486 H (150-450) k/uL Neutrophils # 20.4 H (1.3-7.7) k/uL Monocytes # 1.3 H (0-1.0) k/uL Chloride 96 L (98-107) mmol/L Carbon Dioxide 36 H (22-30) mmol/L Glucose 119 H (74-99) mg/dL Procalcitonin 0.18 H (0.02-0.09) ng/mL Microbiology - Last 24 Hours (Table) 11/01/19 22:00 Blood Culture - Preliminary Blood No Growth after 120 hours Assessment and Plan Assessment: 1. Right upper lobe pneumonia. Likely community-acquired pneumonia 2. Acute COPD exacerbation 3. Acute hypoxic respiratory failure secondary to above - continue patient on IV Vancomycin and Zosyn, IV steroids; continue with O2 per nasal cannula keeping SpO2 greater than 92% - Pulmonary is following. 2. Suspected COVID 19 infection; test Negative 3. Mild transaminitis; possibly related to 1 and 2 - We will continue to monitor liver enzymes with possible abdominal ultrasound if liver enzymes continue to trend up 4. Hypothyroidism; levothyroxine 50 MCG daily 5. Hyperlipidemia; continue with home dose of Lipitor 20 mg by mouth daily at bedtime 6. Depression/sleep disorder; Zoloft 100 mg daily along with trazodone 100 mg daily at bedtime DVT prophylaxis; SCDs/subcu heparin CODE STATUS; full code Time with Patient: Greater than 30
[2019-11-08] MEDS: PIPERACILLIN-TAZOBACTAM 3.375 GM in SODIUM CHLORIDE 0.9% 100 ML IVPB SCH ×3 (04:04→19:38)
[2019-11-08] MEDS: LEVOTHYROXINE 50 MCG TAB PO SCH (06:24)
--- NOTE | 2019-11-08 07:35 | XR ---
EXAMINATION TYPE: XR chest 1V portable DATE OF EXAM: 11/08/2019 COMPARISON: Prior chest x-ray 11/06/2019 HISTORY: Pneumonia TECHNIQUE: Single frontal view of the chest is obtained. FINDINGS: Pleural parenchymal changes show similar appearance. Heart is enlarged. No evident pneumot horax. IMPRESSION: Correlate for pneumonia and follow-up to resolution, there may be small pleural effusion s. Heart is enlarged.
[2019-11-08] MEDS: ALBUTEROL HFA INHALER INHALATION SCH ×4 (07:43→19:27)
[2019-11-08] MEDS: SYMBICORT 160-4.5 MCG INHALER INHALATION SCH ×2 (07:43→19:27)
[2019-11-08 07:55] LABS: HGB 12.4 gm/dL (11.4-16.0); MCH 31.7 pg (25.0-35.0); MCHC 30.9 g/dL (31.0-37.0); MCV 102.6 fL (80.0-100.0); Macrocytosis Slight; Mean Platelet Volume 7.6; Platelet Count 507 k/uL (150-450); RDW 13.9 % (11.5-15.5); WBC 22.4 k/uL (3.8-10.6)
[2019-11-08 08:12] LABS: African American GFR (CKD) >90 (>60 ml/min/1.73 sqM); Anion Gap 4 mmol/L; Blood Urea Nitrogen 18 mg/dL (7-17); Carbon Dioxide 36 mmol/L (22-30); Chloride 98 mmol/L (98-107); Glucose 99 mg/dL (74-99); Non-African American GFR(CKD) >90 (>60 ml/min/1.73 sqM); Potassium 4.7 mmol/L (3.5-5.1); Sodium 138 mmol/L (137-145)
[2019-11-08 08:23] LABS: Band Neutrophils % 2 %; Lymphocytes # (M) 3.58 k/uL (1.0-4.8); Metamyelocytes # (M) 0.45 k/uL (0); Metamyelocytes % 2 %; Monocytes # (M) 0.67 k/uL (0-1.0); Myelocytes # (M) 0.22 k/uL (0); Myelocytes % 1 %; Neutrophils % (M) 77 %; Nucleated Red Blood Cells 0 /100 WBC (0-0); Total Cells Counted 200
[2019-11-08] MEDS: MORPHINE SULFATE 4 MG/ML SYRINGE IVP PRN ×3 (08:52→20:15)
[2019-11-08] MEDS: buPROPion XL 300 MG TAB.ER.24H PO SCH (08:59)
[2019-11-08] MEDS: ATORVASTATIN 20 MG TAB PO SCH (08:59)
[2019-11-08] MEDS: DOCUSATE 100 MG CAP PO SCH ×2 (08:59→20:15)
[2019-11-08] MEDS: POLYETHYLENE GLYCOL 3350 17 GM POWD.PACK PO SCH (09:00)
[2019-11-08] MEDS: GABAPENTIN 300 MG CAP PO SCH ×3 (09:00→21:44)
[2019-11-08] MEDS: BACLOFEN 10 MG TAB PO SCH ×2 (09:00→20:15)
[2019-11-08] MEDS: HEPARIN SODIUM,PORCINE 5,000 UNIT/ML 1 ML VIAL SQ SCH ×2 (09:01→20:15)
[2019-11-08] MEDS: FUROSEMIDE 10 MG/ML 2 ML VIAL IV SCH (09:04)
--- NOTE | 2019-11-08 12:31 | P.PN ---
Subjective Progress Note Date: 11/08/19 Principal diagnosis: Acute hypoxic respiratory failure secondary to right upper lobe consolidation most likely community-acquired bronchopneumonia. CoVID 19 screen negative. This is a pleasant 59-year-old female patient who has a history of oxygen dependent chronic obstructive pulmonary disease, chronic tobacco dependence, hyperlipidemia. She presented here to the emergency room on 11/01/2019 with complaints of increasing shortness of breath cough, congestion and fever for 2-3 days prior to her arrival. Her temperature was as high as 102. She also had an episode of diarrhea. Chest x-ray shows significant right upper lobe pneumonia. She is seen today in consultation on the regular medical floor. She is currently awake and alert in no acute distress. She is maintaining O2 saturations in the low 90s on 4 L/m per nasal cannula. Afebrile this morning. She's had a T-max of 101.5 here. Blood and sputum cultures are pending. White count 17.7. Hemoglobin 10.6. Sodium 136. Potassium 3.6. Creatinine 0.49. Penaloza virus not detected. She's been initiated on azithromycin and ceftriaxone. She is on bronchodilators and IV Solu-Medrol. 0.9#875 ML's per hour. Heparin for DVT prophylaxis. The patient is seen today 11/07/2019 follow-up on the regular medical floor. She is awake and alert in no acute distress. She is maintaining good O2 saturations in the 90s on 3 L/m per nasal cannula. She's been afebrile. Hemodynamically stable. Sputum cultures positive for MRSA. Culture reveals no growth. White count 23.5. Hemoglobin 11.8. Sodium 138. Potassium 4.2. Creatinine 0.60. She remains on vancomycin and Zosyn along with bronchodilators and IV Solu-Medrol. She also is on Lasix 20 mg IV daily. The patient is seen today 11/08/2019 in follow-up on the regular medical floor. She is resting comfortably in bed. Awake and alert in no acute distress. Maintaining O2 saturations in the 90s on 3 L/m per nasal cannula. She's afebrile. Hemodynamically stable. Sputum culture was positive for MRSA. Blood cultures revealed no growth. White count 22.4. Hemoglobin 12.4. Sodium 138. Potassium 4.7. Creatinine 0.6. She remains on vancomycin and Zosyn. Chest x- ray continues to show right upper lobe pneumonia Objective - Vital Signs Vital signs: Vital Signs Temp 98.0 F 11/08/19 07:00 Pulse 60 11/08/19 07:00 Resp 18 11/08/19 08:00 BP 122/68 11/08/19 07:00 Pulse Ox 96 11/08/19 07:00 Intake & Output 11/07/19 11/08/19 11/08/19 18:59 06:59 18:59 Intake Total 400 Balance 400 Intake: Oral 400 Other: Voiding Method Toilet Toilet Toilet # Voids 2 1 - Exam GENERAL EXAM: Alert, pleasant 59-year-old female patient, on 3 L nasal cannula, comfortable in no apparent distress. HEAD: Normocephalic. EYES: Normal reaction of pupils, equal size. NOSE: Clear with pink turbinates. THROAT: No erythema or exudates. NECK: No masses, no JVD. CHEST: No chest wall deformity. LUNGS: Equal air entry with few scattered rhonchi more so on the right lung, end expiratory wheeze, diminished. CVS: S1 and S2 normal with no audible murmur, regular rhythm. ABDOMEN: No hepatosplenomegaly, normal bowel sounds, no guarding or rigidity. SPINE: No scoliosis or deformity SKIN: No rashes CENTRAL NERVOUS SYSTEM: No focal deficits, tone is normal in all 4 extremities. EXTREMITIES: There is no peripheral edema. No clubbing, no cyanosis. Peripheral pulses are intact. - Labs CBC & Chem 7: 11/08/19 07:24 11/08/19 07:24 Labs: Abnormal Lab Results - Last 24 Hours (Table) 11/07/19 11/08/19 11/08/19 Range/Units 08:40 07:24 07:24 WBC 22.4 H (3.8-10.6) k/uL MCV 102.6 H (80.0-100.0) fL MCHC 30.9 L (31.0-37.0) g/dL Plt Count 507 H (150-450) k/uL Neutrophils # (Manual) 17.60 H (1.3-7.7) k/uL Metamyelocytes # (Man) 0.45 H (0) k/uL Myelocytes # (Manual) 0.22 H (0) k/uL Carbon Dioxide 36 H (22-30) mmol/L BUN 18 H (7-17) mg/dL Procalcitonin 0.18 H (0.02-0.09) ng/mL Microbiology - Last 24 Hours (Table) 11/01/19 22:00 Blood Culture - Final Blood No Growth after 144 hours Assessment and Plan Assessment: 1 Acute hypoxic respiratory failure secondary to right upper lobe consolidation secondary to MRSA, Covid 19 screen negative 2 Leukocytosis secondary to above 3 Acute exacerbation of chronic obstructive pulmonary disease secondary to above 4 Chronic tobacco dependence 5 Hyperlipidemia 6 Hypothyroidism Plan The patient was seen and evaluated by Dr. Love Chest x-ray and labs reviewed Continue vancomycin and Zosyn Continue Symbicort continue DuoNeb's Continue IV Solu-Medrol Encouraged regarding the importance of complete smoking cessation We will continue to follow and make further recommendations based on her clinical status I, the cosigning physician, performed a history & physical examination of the patient. Lungs sounds few scattered rhonchi more so on the right, and expiratory wheeze, diminished Maintaining good O2 saturations in the 90s on 3 L/m per nasal cannula. I discussed the assessment and plan of care with my nurse pra dinesh, Carley Andrade. I attest to the above note as dictated by her.
--- NOTE | 2019-11-08 15:41 | P.PN ---
Subjective 59-year-old female patient passed medical history significant for oxygen dependent COPD presents to the emergency department today for evaluation of fever, cough, and shortness of breath. Patient states symptoms have been present for the last 2-3 days. States that she does feel tightness in her chest with this. Denies any sputum production. States that she has been feverish and chilled, temperature is been as high as 102F. She denies any nausea, vomiting, abdominal pain, hematuria, dysuria, urinary frequency, urinary urgency. States she has been having 1 episode of diarrhea daily for the last couple of days. Patient denies any recent rash, numbness, tingling, dizziness, weakness, hematuria, dysuria, urinary urgency, urinary frequency, headache, visual changes, or any other complaints. Evaluation in ED revealed patient temperature to be at 101.5; elevated white blood count of 19,000 with mild elevation in liver enzymes; chest x-ray showed right upper lobe pneumonia; patient is started on IV Rocephin and azithromycin and is admitted to the hospital for further evaluation; patient is suspicious of covert 19 infection; testing is negatie. 11/03/2019 Patient currently denied any complaints of chest pain. Shortness of breath is about the same. Patient does have bilateral diffuse wheezing on exam. WBC is improving to 17.0 today. Currently being continued on antibiotics ceftriaxone and azithromycin. Pulmonary is following. Continue with oxygen therapy. No nausea vomiting or abdominal pain or diarrhea. Laboratory data showed WBC 17.7, hemoglobin 10.6, sodium 136, creatinine 0.49 CRP 378 and pro calcitonin 1.26. Both elevated. 11/03 Patient is currently sitting on the side of the bed. No complaints of chest pain. Still having cough with minimal sputum production and shortness of breath with exertion. Chest x-ray continues to show persistent right upper lobe acute infiltrate on the background of chronic emphysematous changes. New small tiny bilateral pleural effusions noted. Blood cultures showed no growth so far. WBC count improved to 15.7 today. Hemoglobin 10.9, MCV 103 BUN 13 and creatinine 0.41 patient has been afebrile. Pulmonary is following. Patient is being continued on IV antibiotics and breathing treatments. 11/05/19 Patient is still complaining of wet cough and shortness of breath. Able to walk to the bathroom but gets very tired and dyspneic. Currently on 2 L oxygen via nasal cannula. No fever no chills. Sputum cultures showed presumptive staph aureus. Currently patient is on antibiotics in the form of ceftriaxone and azithromycin. Laboratory test showed WBC count 22.5 today. Patient is on IV steroids as well. Continued on breathing treatments. Pulmonary is following. 11/06/2019 Patient is currently sitting on the side of the bed, still having wet congested cough. Leukocytosis is worsening with WBC count 22.9. Repeat chest x-ray showed bibasilar lateral small effusions. Patient was given a dose of IV Lasix. Antibiotics were changed to vancomycin and Zosyn as per pulmonary recommendations. Patient has been afebrile. Still requiring oxygen at 2 L via nasal cannula. Blood pressure is fairly controlled. No nausea vomiting or abdominal pain or diarrhea. 11/07/2019 Patient is currently sitting on the bed comfortably. Breathing status is impr oving. No acute distress. Still requiring oxygen at 3 L via nasal cannula. Bilateral coarse breath sounds on examination. Patient is being continued on antibiotics in the form of vancomycin and Zosyn. Sputum culture showed MRSA. Blood cultures showed no growth. WBC 23.5, hemoglobin 11.8 and BUN 16 and creatinine 0.6 Procalcitonin level trending down to 0.18 Patient will be continued on IV Lasix for 1 more day. Monitor CBC and BMP tomorrow. 11/08/2019 Patient still has some wheezing rhonchus breath sounds patient has MRSA in the sputum. Patient still doesn't feel like she is at her baseline remains on oxygen. Constitutional: Denied any fatigue denied any fever. Cardio vascular: denied any chest pain, palpitations Gastrointestinal denied any nausea vomiting Pulmonary: Continued shortness of breath Neurologic denied any new focal deficits All inpatient medications were reviewed and appropriate changes in these medications as dictated in the interval history and assessment and plan. Objective - Vital Signs Vital signs: Vital Signs Temp 98.2 F 11/08/19 15:00 Pulse 69 11/08/19 15:00 Resp 15 11/08/19 15:00 BP 90/50 11/08/19 15:00 Pulse Ox 97 11/08/19 15:00 Intake & Output 11/07/19 11/08/19 11/08/19 18:59 06:59 18:59 Intake Total 400 350 Balance 400 350 Intake: Intake, IV Titration 350 Amount Piperacillin-Tazobactam 3 100 .375 gm In Sodium Chloride 0.9% 100 ml @ 25 mls/hr IVPB Q8H [facility] Rx#: [id number] Vancomycin 1,000 mg In 250 Sodium Chloride 0.9% 250 ml @ 125 mls/hr IVPB Q8HR [facility] Rx#:[id number] Oral 400 Other: Voiding Method Toilet Toilet Toilet # Voids 2 1 2 - Exam PHYSICAL EXAMINATION: GENERAL: The patient is alert and oriented x3, not in any acute distress. Well developed, well nourished. HEENT: Pupils are round and equally reacting to light. EOMI. No scleral icterus. No conjunctival pallor. Normocephalic, atraumatic. No pharyngeal erythema. No thyromegaly. CARDIOVASCULAR: S1 and S2 present. No murmurs, rubs, or gallops. PULMONARY: Bilateral diffuse rhonchi with the some expiratory wheezing ABDOMEN: Soft, nontender, nondistended, normoactive bowel sounds. No palpable organomegaly. MUSCULOSKELETAL: No joint swelling or deformity. EXTREMITIES: No cyanosis, clubbing, or pedal edema. NEUROLOGICAL: Gross neurological examination did not reveal any focal deficits. SKIN: No rashes. - Labs CBC & Chem 7: 11/08/19 07:24 11/08/19 07:24 Labs: Abnormal Lab Results - Last 24 Hours (Table) 11/07/19 11/08/19 11/08/19 Range/Units 08:40 07:24 07:24 WBC 22.4 H (3.8-10.6) k/uL MCV 102.6 H (80.0-100.0) fL MCHC 30.9 L (31.0-37.0) g/dL Plt Count 507 H (150-450) k/uL Neutrophils # (Manual) 17.60 H (1.3-7.7) k/uL Metamyelocytes # (Man) 0.45 H (0) k/uL Myelocytes # (Manual) 0.22 H (0) k/uL Carbon Dioxide 36 H (22-30) mmol/L BUN 18 H (7-17) mg/dL Procalcitonin 0.18 H (0.02-0.09) ng/mL Microbiology - Last 24 Hours (Table) 11/01/19 22:00 Blood Culture - Final Blood No Growth after 144 hours Assessment and Plan Plan: 1. Right upper lobe pneumonia. MRSA pneumonia, patient is on vancomycin is also on Zosyn 2. Acute COPD exacerbation 3. Acute hypoxic respiratory failure secondary to above - continue patient on IV Vancomycin and Zosyn, IV steroids; continue with O2 per nasal cannula keeping SpO2 greater than 92% - Pulmonary is following. 2. Ruled out COVID 19 infection; 3. Mild transaminitis; possibly related to 1 and 2 were improved 4. Hypothyroidism; levothyroxine 50 MCG daily 5. Hyperlipidemia; continue with home dose of Lipitor 20 mg by mouth daily at bedtime 6. Depression/sleep disorder; Zoloft 100 mg daily along with trazodone 100 mg daily at bedtime DVT prophylaxis; SCDs/subcu heparin CODE STATUS; full code
[2019-11-08] MEDS: SERTRALINE 100 MG TAB PO SCH (20:15)
[2019-11-08] MEDS: traZODone HCL 100 MG TAB PO SCH (20:15)
[2019-11-09] MEDS: PIPERACILLIN-TAZOBACTAM 3.375 GM in SODIUM CHLORIDE 0.9% 100 ML IVPB SCH ×2 (03:08→13:01)
[2019-11-09] MEDS: LEVOTHYROXINE 50 MCG TAB PO SCH (06:13)
[2019-11-09 08:36] LABS: African American GFR (CKD) >90 (>60 ml/min/1.73 sqM); Non-African American GFR(CKD) >90 (>60 ml/min/1.73 sqM)
[2019-11-09] MEDS: SYMBICORT 160-4.5 MCG INHALER INHALATION SCH (08:36)
[2019-11-09] MEDS: ALBUTEROL HFA INHALER INHALATION SCH ×2 (08:36→11:58)
[2019-11-09 08:40] VITALS: RESP 16; TEMP 98.2
[2019-11-09] MEDS: methylPREDNISolone SOD SUCCI 40 MG/ML 1 ML VIAL IV SCH (08:41)
[2019-11-09] MEDS: DOCUSATE 100 MG CAP PO SCH (08:44)
[2019-11-09] MEDS: ATORVASTATIN 20 MG TAB PO SCH (08:44)
[2019-11-09] MEDS: POLYETHYLENE GLYCOL 3350 17 GM POWD.PACK PO SCH (08:44)
[2019-11-09] MEDS: BACLOFEN 10 MG TAB PO SCH (08:44)
[2019-11-09] MEDS: buPROPion XL 300 MG TAB.ER.24H PO SCH (08:44)
[2019-11-09] MEDS: GABAPENTIN 300 MG CAP PO SCH (08:44)
[2019-11-09] MEDS: FUROSEMIDE 10 MG/ML 2 ML VIAL IV SCH (08:50)
[2019-11-09] MEDS: MORPHINE SULFATE 4 MG/ML SYRINGE IVP PRN (09:08)
[2019-11-09] MEDS: HEPARIN SODIUM,PORCINE 5,000 UNIT/ML 1 ML VIAL SQ SCH (09:08)
[2019-11-09] MEDS: VANCOMYCIN 1,000 MG in SODIUM CHLORIDE 0.9% 250 ML IVPB SCH (09:19)
[2019-11-09] MEDS ORDERED: SODIUM CHLORIDE 0.9% 1,000 ML IV ONE (11:18)
[2019-11-09 11:26] VITALS: BP 97/50; PULSE 75
--- NOTE | 2019-11-09 12:23 | P.DS ---
Providers Date of admission: 11/02/19 11:51 Attending physician: Lencho Fernandez MD Consults: 11/02/19 15:55 Consult Physician Routine Consulting Provider: Cassie Irwin Consult Reason/Comments: Pneumonia/suspected COVID 19 Do you want consulting provider notified?: Yes Primary care physician: [facility] [place] Course: 59-year-old female patient passed medical history significant for oxygen depe ndent COPD presents to the emergency department today for evaluation of fever, cough, and shortness of breath. Patient states symptoms have been present for the last 2-3 days. States that she does feel tightness in her chest with this. Denies any sputum production. States that she has been feverish and chilled, temperature is been as high as 102F. She denies any nausea, vomiting, abdominal pain, hematuria, dysuria, urinary frequency, urinary urgency. States she has been having 1 episode of diarrhea daily for the last couple of days. Patient denies any recent rash, numbness, tingling, dizziness, weakness, hematuria, dysuria, urinary urgency, urinary frequency, headache, visual changes, or any other complaints. Evaluation in ED revealed patient temperature to be at 101.5; elevated white blood count of 19,000 with mild elevation in liver enzymes; chest x-ray showed right upper lobe pneumonia; patient is started on IV Rocephin and azithromycin and is admitted to the hospital for further evaluation; patient is suspicious of covert 19 infection; testing is negatie. 11/03/2019 Patient currently denied any complaints of chest pain. Shortness of breath is about the same. Patient does have bilateral diffuse wheezing on exam. WBC is improving to 17.0 today. Currently being continued on antibiotics ceftriaxone and azithromycin. Pulmonary is following. Continue with oxygen therapy. No nausea vomiting or abdominal pain or diarrhea. Laboratory data showed WBC 17.7, hemoglobin 10.6, sodium 136, creatinine 0.49 CRP 378 and pro calcitonin 1.26. Both elevated. 11/03 Patient is currently sitting on the side of the bed. No complaints of chest pain. Still having cough with minimal sputum production and shortness of breath with exertion. Chest x-ray continues to show persistent right upper lobe acute infiltrate on the background of chronic emphysematous changes. New small tiny bilateral pleural effusions noted. Blood cultures showed no growth so far. WBC count improved to 15.7 today. Hemoglobin 10.9, MCV 103 BUN 13 and creatinine 0.41 patient has been afebrile. Pulmonary is following. Patient is being continued on IV antibiotics and breathing treatments. 11/05/19 Patient is still complaining of wet cough and shortness of breath. Able to walk to the bathroom but gets very tired and dyspneic. Currently on 2 L oxygen via nasal cannula. No fever no chills. Sputum cultures showed presumptive staph aureus. Currently patient is on antibiotics in the form of ceftriaxone and azithromycin. Laboratory test showed WBC count 22.5 today. Patient is on IV steroids as well. Continued on breathing treatments. Pulmonary is following. 11/06/2019 Patient is currently sitting on the side of the bed, still having wet congested cough. Leukocytosis is worsening with WBC count 22.9. Repeat chest x-ray showed bibasilar lateral small effusions. Patient was given a dose of IV Lasix. Antibiotics were changed to vancomycin and Zosyn as per pulmonary r ecommendations. Patient has been afebrile. Still requiring oxygen at 2 L via nasal cannula. Blood pressure is fairly controlled. No nausea vomiting or abdominal pain or diarrhea. 11/07/2019 Patient is currently sitting on the bed comfortably. Breathing status is improving. No acute distress. Still requiring oxygen at 3 L via nasal cannula. Bilateral coarse breath sounds on examination. Patient is being continued on antibiotics in the form of vancomycin and Zosyn. Sputum culture showed MRSA. Blood cultures showed no growth. WBC 23.5, hemoglobin 11.8 and BUN 16 and creatinine 0.6 Procalcitonin level trending down to 0.18 Patient will be continued on IV Lasix for 1 more day. Monitor CBC and BMP tomorrow. 11/08/2019 Patient still has some wheezing rhonchus breath sounds patient has MRSA in the sputum. Patient still doesn't feel like she is at her baseline remains on oxygen. 11/09/2019 Patient is doing much better patient will be discharged on Bactrim discussed sc pulmonology. PHYSICAL EXAMINATION: GENERAL: The patient is alert and oriented x3, not in any acute distress. Well developed, well nourished. HEENT: Pupils are round and equally reacting to light. EOMI. No scleral icterus. No conjunctival pallor. Normocephalic, atraumatic. No pharyngeal erythema. No thyromegaly. CARDIOVASCULAR: S1 and S2 present. No murmurs, rubs, or gallops. PULMONARY: Chest is clear to auscultation, no wheezing or crackles. ABDOMEN: Soft, nontender, nondistended, normoactive bowel sounds. No palpable organomegaly. MUSCULOSKELETAL: No joint swelling or deformity. EXTREMITIES: No cyanosis, clubbing, or pedal edema. NEUROLOGICAL: Gross neurological examination did not reveal any focal deficits. SKIN: No rashes. Assessment and Plan Plan: 1. Right upper lobe pneumonia. MRSA pneumonia, patient was on vancomycin and will be discharged on 1 week of Bactrim follow-up with pulmonary and PCP as an outpatient 2. Acute COPD exacerbationnot requiring systemic steroids 3. Acute hypoxic respiratory failure secondary to above 2. Ruled out COVID 19 infection; 3. Mild transaminitis; possibly related to 1 and 2 were improved 4. Hypothyroidism; levothyroxine 50 MCG daily 5. Hyperlipidemia; continue with home dose of Lipitor 20 mg by mouth daily at bedtime 6. Depression/sleep disorder; Zoloft 100 mg daily along with trazodone 100 mg daily at bedtime Patient Condition at Discharge: Serious Plan - Discharge Summary Discharge Rx Participant: Yes New Discharge Prescriptions: New Sulfamethox-Tmp 800-160Mg [Bactrim DS 800-160 mg] 1 tab PO Q12HR #14 tab Continue buPROPion HCL [Wellbutrin XL] 300 mg PO DAILY Ipratropium-Albuterol Nebulize [Duoneb 0.5 mg-3 mg/3 ml Soln] 3 ml INHALATION TID PRN PRN Reason: Shortness Of Breath Fluticasone/Umeclidin/Vilanter [Trelegy Ellipta 100-62.5-25] 1 puff INHALATION RT-DAILY Albuterol Inhaler [Ventolin Hfa Inhaler] 2 puff INHALATION RT-TID Hydrocortisone Cream [Hydrocortisone 2.5% Cream] 1 applic TOPICAL DAILY SUMAtriptan SUCCINATE [Sumatriptan Succinate] 50 mg PO DAILY PRN PRN Reason: MIGRAINES traZODone HCL 100 mg PO HS Gabapentin 600 mg PO TID Meloxicam 7.5 mg PO DAILY Baclofen 10 mg PO BID Sertraline [Zoloft] 100 mg PO HS Levothyroxine Sodium [Synthroid] 50 mcg PO DAILY Atorvastatin [Lipitor] 20 mg PO DAILY Triamcinolone 0.025% Cream [Kenalog 0.025% Cream] 1 applic TOPICAL DAILY Discharge Medication List Albuterol Inhaler [Ventolin Hfa Inhaler] 2 puff INHALATION RT-TID 11/02/19 [History] Atorvastatin [Lipitor] 20 mg PO DAILY 11/02/19 [History] Baclofen 10 mg PO BID 11/02/19 [History] Fluticasone/Umeclidin/Vilanter [Trelegy Ellipta 100-62.5-25] 1 puff INHALATION RT-DAILY 11/02/19 [History] Gabapentin 600 mg PO TID 11/02/19 [History] Hydrocortisone Cream [Hydrocortisone 2.5% Cream] 1 applic TOPICAL DAILY 11/02/19 [History] Ipratropium-Albuterol Nebulize [Duoneb 0.5 mg-3 mg/3 ml Soln] 3 ml INHALATION TID PRN 11/02/19 [History] Levothyroxine Sodium [Synthroid] 50 mcg PO DAILY 11/02/19 [History] Meloxicam 7.5 mg PO DAILY 11/02/19 [History] SUMAtriptan SUCCINATE [Sumatriptan Succinate] 50 mg PO DAILY PRN 11/02/19 [History] Sertraline [Zoloft] 100 mg PO HS 11/02/19 [History] Triamcinolone 0.025% Cream [Kenalog 0.025% Cream] 1 applic TOPICAL DAILY 11/02/19 [History] buPROPion HCL [Wellbutrin XL] 300 mg PO DAILY 11/02/19 [History] traZODone HCL 100 mg PO HS 11/02/19 [History] Sulfamethox-Tmp 800-160Mg [Bactrim DS 800-160 mg] 1 tab PO Q12HR #14 tab 11/09/19 [Rx] Follow up Appointment(s)/Referral(s): Diego Saini MD [Primary Care Provider] - 3 Days Ambulatory/Diagnostic Orders: Basic Metabolic Panel [LAB.AMB] Time Frame: 3 Days, Location: None Selected
--- NOTE | 2019-11-09 12:26 | P.PN ---
Subjective Progress Note Date: 11/09/19 Principal diagnosis: Acute hypoxic respiratory failure secondary to right upper lobe consolidation most likely community-acquired bronchopneumonia. CoVID 19 screen negative. This is a pleasant 59-year-old female patient who has a history of oxygen dependent chronic obstructive pulmonary disease, chronic tobacco dependence, hyperlipidemia. She presented here to the emergency room on 11/01/2019 with complaints of increasing shortness of breath cough, congestion and fever for 2-3 days prior to her arrival. Her temperature was as high as 102. She also had an episode of diarrhea. Chest x-ray shows significant right upper lobe pneumonia. She is seen today in consultation on the regular medical floor. She is currently awake and alert in no acute distress. She is maintaining O2 saturations in the low 90s on 4 L/m per nasal cannula. Afebrile this morning. She's had a T-max of 101.5 here. Blood and sputum cultures are pending. White count 17.7. Hemoglobin 10.6. Sodium 136. Potassium 3.6. Creatinine 0.49. Penaloza virus not detected. She's been initiated on azithromycin and ceftriaxone. She is on bronchodilators and IV Solu-Medrol. 0.9#875 ML's per hour. Heparin for DVT prophylaxis. The patient is seen today 11/07/2019 follow-up on the regular medical floor. She is awake and alert in no acute distress. She is maintaining good O2 saturations in the 90s on 3 L/m per nasal cannula. She's been afebrile. Hemodynamically stable. Sputum cultures positive for MRSA. Culture reveals no growth. White count 23.5. Hemoglobin 11.8. Sodium 138. Potassium 4.2. Creatinine 0.60. She remains on vancomycin and Zosyn along with bronchodilators and IV Solu-Medrol. She also is on Lasix 20 mg IV daily. The patient is seen today 11/08/2019 in follow-up on the regular medical floor. She is resting comfortably in bed. Awake and alert in no acute distress. Maintaining O2 saturations in the 90s on 3 L/m per nasal cannula. She's afebrile. Hemodynamically stable. Sputum culture was positive for MRSA. Blood cultures revealed no growth. White count 22.4. Hemoglobin 12.4. Sodium 138. Potassium 4.7. Creatinine 0.6. She remains on vancomycin and Zosyn. Chest x- ray continues to show right upper lobe pneumonia The patient is seen today 11/09/2019 in follow-up on the regular medical floor. She is currently up ambulating in her room. Awake and alert in no acute distress. He is maintaining good O2 saturations in the mid 90s on 3 L/m per nasal cannula. She's been afebrile. Creatinine 0.64. She remains on vancomycin and Zosyn. Objective - Vital Signs Vital signs: Vital Signs Temp 98.2 F 11/09/19 08:40 Pulse 75 11/09/19 11:26 Resp 16 11/09/19 08:40 BP 97/50 11/09/19 11:26 Pulse Ox 96 11/09/19 08:40 Intake & Output 11/08/19 11/09/19 11/09/19 18:59 06:59 18:59 Intake Total 550 750 180 Balance 550 750 180 Intake: Intake, IV Titration 350 Amount Piperacillin-Tazobactam 3 100 .375 gm In Sodium Chloride 0.9% 100 ml @ 25 mls/hr IVPB Q8H [facility] Rx#: [id number] Vancomycin 1,000 mg In 250 Sodium Chloride 0.9% 250 ml @ 125 mls/hr IVPB Q8HR [facility] Rx#:[id number] Oral 200 750 180 Other: Voiding Method Toilet Toilet Toilet # Voids 2 2 - Exam GENERAL EXAM: Alert, pleasant 59-year-old female patient, on 3 L nasal cannula, comfortable in no apparent distress. HEAD: Normocephalic. EYES: Normal reaction of pupils, equal size. NOSE: Clear with pink turbinates. THROAT: No erythema or exudates. NECK: No masses, no JVD. CHEST: No chest wall deformity. LUNGS: Equal air entry with few scattered rhonchi more so on the right lung, end expiratory wheeze, diminished. CVS: S1 and S2 normal with no audible murmur, regular rhythm. ABDOMEN: No hepatosplenomegaly, normal bowel sounds, no guarding or rigidity. SPINE: No scoliosis or deformity SKIN: No rashes CENTRAL NERVOUS SYSTEM: No focal deficits, tone is normal in all 4 extremities. EXTREMITIES: There is no peripheral edema. No clubbing, no cyanosis. Peripheral pulses are intact. - Labs CBC & Chem 7: 11/08/19 07:24 11/09/19 08:03 Assessment and Plan Assessment: 1 Acute hypoxic respiratory failure secondary to right upper lobe consolidation secondary to MRSA, Covid 19 screen negative 2 Leukocytosis secondary to above 3 Acute exacerbation of chronic obstructive pulmonary disease secondary to above 4 Chronic tobacco dependence 5 Hyperlipidemia 6 Hypothyroidism Plan The patient was seen and evaluated by Dr. Love She is cleared for discharge from the pulmonary standpoint Complete a course of antibiotics, possibly Bactrim Continue her Trelegy, continue DuoNeb's Complete prednisone taper Encouraged regarding the importance of complete smoking cessation Follow-up in our office in 1-2 weeks' time I, the cosigning physician, performed a history & physical examination of the patient. Lungs sounds few scattered rhonchi more so on the right, and expiratory wheeze, diminished Maintaining good O2 saturations in the 90s on 3 L/m per nasal cannula. I discussed the assessment and plan of care with my nurse practitioner, Carley Andrade. I attest to the above note as dictated by her.
--- NOTE | 2019-11-09 12:46 | XR ---
EXAMINATION TYPE: XR chest 1V portable DATE OF EXAM: 11/09/2019 COMPARISON: 11/08/2019 HISTORY: MRSA pneumonia. Follow-up exam. TECHNIQUE: Single frontal view of the chest is obtained. FINDINGS: Redemonstration of right upper lobar atelectasis and consolidation with numerous internal cavitary areas. This is slightly less dense in comparison to the prior. Trace pleural effusions remai n with enlarged cardiomediastinal silhouette. No new focal consolidation. IMPRESSION: Slight decreased intensity of the right upper lobe atelectasis and cavitary consolidatio n compatible with the patient's known MRSA pneumonia.
[2019-11-10] MEDS ORDERED: VANCOMYCIN TROUGH DUE 1 EACH MISC MISCELLANE ONE (07:00)
--- NOTE | 2019-11-12 09:11 | CDI ---
Documentation Clarification Form Date: 11/12/19 From: Dasha Mclean CCS Phone: If you have a question about this query, please contact Jeanie Messer, Figure Refinisher And Repairer at [phone] between 8am and 5pm. Admit Date: 11/02/19 Discharge Date:11/09/19 Patient Name: Yue Craig Visit Number: [id number] ATTENTION: The Clinical Documentation Specialists (CDI) and [facility] Coding Staff appreciate your assistance in clarifying documentation. Please respond to the clarification below the line at the bottom and electronically sign. The CDI & [facility] Coding staff will review the response and follow-up if needed. Please note: Queries are made part of the Legal Health Record. If you have any questions, please contact the author of this message via ITS. Dear Dr. Almazan, Documentation states: Dietary Consult: Unintended weight loss- Acute on chronic illness affecting appetite/intake History/Risk Factors: COPD, O2 Dependent, PNA, Depression, Hypothyroid, Tobacco Clinical indicators: Unintended weight loss Abnormal Labs: Albumin 3.4, Total Protein 6.2 Treatment: Ensure Enlive BID for additional KCAL, Protein Nutrition Goals: Increased PO intake frm 50%-75% Clinical significance of diagnostic testing and treatment CANNOT be assumed or coded without physician documentation of significance if any. Please clarify what abnormal laboratory signifies: Underweight Malnutrition (Please specify severity) Mild Moderate Severe Disease process, please specify Infectious process, please specify Abnormal Lab Value Unable to determine Other, please specify Underweight MTDD
== END 2019-11-09 14:07 | disposition home or self-care (01) | DRG 177 ==
LOC: EC 21:33 → 4SSUR 23:25 → OBSVTOIN 11-02 11:51
PROVIDERS: ADMIT Internal Medicine; ATTEND Internal Medicine
DX: J15.212 Pneumonia due to Methicillin resistant Staphylococcus aureus (principal); J96.01 Acute respiratory failure with hypoxia; J90 Pleural effusion, not elsewhere classified; J44.1 Chronic obstructive pulmonary disease with (acute) exacerbation; J44.0 Chronic obstructive pulmonary disease with (acute) lower respiratory infection; Z20.828 Contact with and (suspected) exposure to other viral communicable diseases; Z99.81 Dependence on supplemental oxygen; R19.7 Diarrhea, unspecified; E78.5 Hyperlipidemia, unspecified; F17.200 Nicotine dependence, unspecified, uncomplicated; R74.0 Nonspecific elevation of levels of transaminase and lactic acid dehydrogenase [LDH]; E03.9 Hypothyroidism, unspecified; F32.9 Major depressive disorder, single episode, unspecified; G47.9 Sleep disorder, unspecified; R63.6 Underweight; G43.909 Migraine, unspecified, not intractable, without status migrainosus; Z68.22 Body mass index [BMI] 22.0-22.9, adult; Z71.6 Tobacco abuse counseling; Z71.3 Dietary counseling and surveillance; Z79.899 Other long term (current) drug therapy; Z79.890 Hormone replacement therapy; Z79.1 Long term (current) use of non-steroidal anti-inflammatories (NSAID); Z98.51 Tubal ligation status; Z91.040 Latex allergy status
CPT/HCPCS: 36415; 71045; 80048; 80053; 80202; 81001; 82565; 83605; 84145; 84484; 85025; 85610; 85730; 86140; 87040; 87070; 87077; 87186; 87205; 87635; 93005; 94640; 96365; 96368; 96375; 99285

== ENCOUNTER → 2019-11-12 | Outpatient (CLI) | payer MEDICARE, OTHER ==
[2019-11-12 19:27] LABS: African American GFR (CKD) 82.3 (60.0-200.0); Anion Gap 7.5 mmol/L (4.00-12.00); BUN/Creat Ratio 21.11 Ratio (12.00-20.00); Calcium 9.2 mg/dL (8.7-10.3); Carbon Dioxide 31.5 mmol/L (21.6-31.8); Potassium 4.9 mmol/L (3.5-5.5)
== END | disposition home or self-care (01) ==
LOC: LABWHC1 11:41
PROVIDERS: ATTEND Internal Medicine
DX: Z51.81 Encounter for therapeutic drug level monitoring (principal); Z79.2 Long term (current) use of antibiotics
CPT/HCPCS: 36415; 80048